=== PATIENT | male | born 1970 | race Caucasian/White ===

== ENCOUNTER 2023-07-17 09:36 | Inpatient (IN) ==
[2023-07-17 09:46] VITALS: BMI 25.0
--- NOTE | 2023-07-17 10:01 | DR.ABDMALE ---
HPI Time seen Time Seen by Provider: 07/17/23 10:00 PCP Primary Care Physician: Horace Complaint Chief Complaint Doctors Comments: 53 y/o male presents for evaluation. Having upper abdominal pain, off/on x 3-4 days. Located epigastric area, sharp, does not radiate. + worse after eating. Nothing makes it better. Had diarrhea the other day. No change in stool color. No fever, chills, URI symptoms, urinary issues. No h/o abdominal surgeries, no Etoh usage. Chief Complaint:: Pt c/o abdominal pain, indicates in epigastric region, denies n/v/d, "I feel like I'm bloated, I have a gnawing pain". Pain is worse with food and fluids, no relief from pain at present Self Treatment fo Chief Complaint: tylenol and aleve this morning; omeprazole, mylanta, tums, nothing effective to relieve sx residential COVID-19 Coronavirus risk:travel/contact w/high risk person: No Has patient experienced Coronavirus symptoms: No Reviewed Nurses Notes Review: Yes Source History provided by:: patient Mode of arrival Mode of Arrival: Ambulatory Timing Onset of Chief Complaint: 07/14/23 PMH PMH Past Medical History: Yes Past Medical History: Hypertension Past Medical History Comment: HIV Past Surgical History: No Family History History of Family Medical Conditions: Yes Family Medical History: Diabetes Mellitus and Hypertension Social History Does patient currently use any type of tobacco product: Yes Have you used tobacco products in the last 12 months: Yes Type of Tobacco Use: Cigarettes Does any household member use tobacco: No Alcohol Use: None Do you use any recreational Drugs:: No Lives With: Mom Lives Where: Home Travel Risk Coronavirus risk:travel/contact w/high risk person: No Has patient experienced Coronavirus symptoms: No Infectious screening In the last 2 months have you had wt loss of >10#?: NO Have you had fever, night sweats or hemotysis?: No Have you traveled outside the country in the last 6 months?: No Isolation: Standard ROS Review of Systems Constitutional: No Symptoms Reported Eyes: No Symptoms Reported ENTM: No Symptoms Reported Respiratoy: No Symptoms Reported Cardiovascular: No Symptoms Reported Gastrointestinal/Abdominal: Abdominal Pain Genitourinary: No Symptoms Reported Neurological: No Symptoms Reported Musculoskeletal: No Symptoms Reported Integumentary: No Symptoms Reported Hematologic/Lymphatic: No Symptoms Reported All Other Systems: Reviewed and Negative PE Vital Signs Vital Signs: Temp Pulse Resp BP Pulse Ox O2 Del Method 07/17/23 12:55 20 07/17/23 13:52 20 07/17/23 11:31 20 07/17/23 12:25 20 07/17/23 11:01 20 07/17/23 09:46 162/112 07/17/23 09:37 98.4 F 81 16 180/108 98 Room Air General General Appearance: Alert and In No Apparent Distress Eyes Eye exam: PERRL, EOMI and Scleral Icterus ENT ENT Exam: Mucous Membranes Moist Neck Neck Exam: Normal Inspection Respiratory Respiratory Exam: Normal Lung Sounds Bilat; negative Accessory Muscle Use or Respiratory Distress Cardiovascular Cardiovascular Exam: Regular Rate, Normal Rhythm and Normal Heart Sounds Abdominal Exam Abdominal Exam: Normal Inspection, Normal Bowel Sounds, Soft and Tenderness (epigastric, RUQ. Negative Huang's) Back Back Exam: Normal Inspection Extremeties Extremities Exam: Normal Inspection Neurologic Neurological Exam: Alert, Oriented X3 and CN II-XII Intact; negative Motor Sensory Deficit Skin Skin Exam: Warm and Dry COURSE Treatment Treatment: 53 y/o male with epigastric pain. W/u initiated. Pt given IV fluids, Iv protonix/po carafate. Labs show elevated TB, liver enzymes. GB US shows multiple stones, no evidence for acute cholecystitis. Consulted with Dr Christy, surgery. Recommends admission to medicine, notified Dr Vu. Dr Christy wanted an MRCP, pt was unable to tolerate it at this time. Pt was given multiple rounds of pain medicine, helps temporarily. Pt also with a UTI. Given a dose of rocephin. Admitted to the hospital, Dr Delgado wanted IV levaquinn on board . [facility]OR Labs Reviewed Laboratory Results Reviewed?: Yes 07/17/23 10:18 07/17/23 10:18 Laboratory: WBC 8.6 X10^3/uL (3.6-10.0) 07/17/23 10:18 RBC 5.43 X10^6/uL (4.7-6.0) 07/17/23 10:18 Hgb 15.2 g/dL (13.5-18.0) 07/17/23 10:18 Hct 45.7 % (42.0-54.0) 07/17/23 10:18 MCV 84.0 fL (80.0-100.0) 07/17/23 10:18 MCH 28.0 pg (27.0-34.0) 07/17/23 10:18 MCHC 33.3 g/dL (33.0-35.0) 07/17/23 10:18 RDW 14.6 % (11.6-16.5) 07/17/23 10:18 Plt Count 301 X10^3/uL (150.0-450.0) 07/17/23 10:18 MPV 8.2 fL (7.4-11.0) 07/17/23 10:18 Neut % (Auto) 74.0 % (42.0-75.0) 07/17/23 10:18 Lymph % (Auto) 16.6 % (21.0-51.0) L 07/17/23 10:18 [place] % (Auto) 7.4 % (0.0-13.0) 07/17/23 10:18 Eos % (Auto) 1.2 % (0.9-2.9) 07/17/23 10:18 Baso % (Auto) 0.8 % (0.2-1.0) 07/17/23 10:18 Neut # (Auto) 6.4 x10^3/uL (2.2-4.8) H 07/17/23 10:18 Lymph # (Auto) 1.4 X10^3/uL (1.3-2.9) 07/17/23 10:18 [place] # (Auto) 0.6 x10^3/uL (0.3-0.8) 07/17/23 10:18 Eos # (Auto) 0.1 x10^3/uL (0.0-0.2) 07/17/23 10:18 Baso # (Auto) 0.1 X10^3/uL (0.0-0.1) 07/17/23 10:18 Absolute Nucleated RBC 0.0 /100WBC 07/17/23 10:18 Sodium 132 mmol/L (136-145) L 07/17/23 10:18 Corrected Sodium 134 mmol/L (136-145) L 07/17/23 10:18 Potassium 3.4 mmol/L (3.5-5.1) L 07/17/23 10:18 Chloride 95 mmol/L (98-107) L 07/17/23 10:18 Carbon Dioxide 32.7 mmol/L (21-32) H 07/17/23 10:18 BUN 10 mg/dL (7-18) 07/17/23 10:18 Creatinine 0.90 mg/dL (0.70-1.30) 07/17/23 10:18 Est GFR (MDRD) Af Amer > 60 (>60) 07/17/23 10:18 Est GFR (MDRD) Non-Af > 60 (>60) 07/17/23 10:18 Glucose 198 mg/dL (65-99) H 07/17/23 10:18 Calcium 9.0 mg/dL (8.5-10.1) 07/17/23 10:18 Corrected Calcium TNP 07/17/23 10:18 Total Bilirubin 5.30 mg/dL (0.2-1.0) H 07/17/23 10:18 AST 289 Units/L (15-37) H 07/17/23 10:18 ALT 478 Units/L (12-78) H 07/17/23 10:18 Alkaline Phosphatase 491 Units/L (46-116) H 07/17/23 10:18 Total Protein 8.2 g/dL (6.4-8.2) 07/17/23 10:18 Albumin 3.6 g/dL (3.4-5.0) 07/17/23 10:18 Globulin 4.6 g/dL (2.5-4.5) H 07/17/23 10:18 Albumin/Globulin Ratio 0.8 Ratio (1.1-2.1) L 07/17/23 10:18 Lipase 116 Units/L (73-393) 07/17/23 10:18 Specimen Type Clean catch urine 07/17/23 10:11 Urine Color Dark yellow (YELLOW) 07/17/23 10:11 Urine Appearance Cloudy (CLEAR) 07/17/23 10:11 Urine pH 6.0 (5.0 - 8.0) 07/17/23 10:11 Ur Specific [place] 1.020 (1.000-1.030) 07/17/23 10:11 Urine Protein 3+ (NEGATIVE) 07/17/23 10:11 Urine Glucose (UA) 3+ (NEGATIVE) 07/17/23 10:11 Urine Ketones Negative (NEGATIVE) 07/17/23 10:11 Urine Blood 2+ (NEGATIVE) 07/17/23 10:11 Urine Nitrite Negative (NEGATIVE) 07/17/23 10:11 Urine Bilirubin 2+ (NEGATIVE) 07/17/23 10:11 Urine Urobilinogen 2+ (NORMAL) 07/17/23 10:11 Ur Leukocyte Esterase 3+ (NEGATIVE) 07/17/23 10:11 Urine RBC 10-20 /HPF (0-3) A 07/17/23 10:11 Urine WBC Tntc /HPF (0-5) A 07/17/23 10:11 Ur Squamous Epith Cells Few /HPF (NEGATIVE) 07/17/23 10:11 Urine Bacteria 2+ /HPF (NEGATIVE) 07/17/23 10:11 Ur Culture Indicated? Yes/culture set up 07/17/23 10:11 Ur C. trach DNA (PCR) Not detected (NOT DETECT) 07/17/23 10:11 U N.gonorrhoeae DNA PCR Not detected (NOT DETECT) 07/17/23 10:11 XRAY XRAY Interpreted by: Radiologist X-ray Results: HISTORY: Right upper quadrant abdominal pain. Study: Right upper quadrant abdominal ultrasound Comparison: None available Technique: Multiple kelley scale and color flow Doppler images of the right upper quadrant were obtained. Findings: The liver is homogeneously echogenic/fatty in appearance. No focal intraparenchymal mass or intrahepatic biliary ductal dilatation can be observed. Numerous gallstones are seen throughout the gallbladder without sonographic evidence for acute cholecystitis. The common bile duct is unremarkable measuring 2 mm. [No pericholecystic fluid or gallbladder wall thickening can be observed]. The CBD measures [within normal limits]. The right kidney appears normal in size without focal parenchymal mass or nephrolithiasis. The right kidney measurers 12 x 5 cm. No hydronephrosis or perirenal fluid can be observed. The pancreas is largely obscured by overlying bowel gas. IMPRESSION: Cholelithiasis without convincing sonographic evidence for acute cholecystitis. Nuclear medicine HIDA imaging may also be considered, as clinically necessary. The liver is diffusely echogenic/fatty appearance, suggesting hepatic steatosis. Electronically signed by: KARTHIK FELIPE III (Jul 17, 2023 12:15:05) Opioid Opioid Risk Tool Age (Dada box if 16-45): No History of Preadolescent Sexual Abuse: No Total: 0 Total Score Risk Category: Low Risk Copyright: [place] predicting aberrant behaviors Discharge Plan Diagnosis Discharge Problem: Cholelithiasis, Jaundice, Acute UTI Discharge Plan Patient Disposition: 09 ADMITTED INPATIENT Condition: Stable Orders to Discharge Patient Discharge Orders: Transfer (Routine); Ordered 07/17/23 Ordered By: Chemo Lozano
[2023-07-17] MEDS ORDERED: NS 1,000 ML IV 1,000 ML IV ONE (10:06)
[2023-07-17] MEDS ORDERED: CARAFATE PO STA (10:06)
[2023-07-17] MEDS ORDERED: PROTONIX INJ 40 MG VIAL IVP ONE ×2 (10:06→17:30)
[2023-07-17] MEDS ORDERED: NS 1,000 ML IV 1,000 ML ONE (10:10)
[2023-07-17] MEDS ORDERED: CARAFATE ONE (10:10)
[2023-07-17] MEDS ORDERED: PROTONIX INJ 40 MG VIAL ONE (10:10)
[2023-07-17 10:37] LABS: BILIRUBIN,URINE 2+ (NEGATIVE); BLOOD/HEMOGLOBIN,URINE 2+ (NEGATIVE); GLUCOSE, URINE 3+ (NEGATIVE); KETONES,URINE NEGATIVE (NEGATIVE); LEUKOCYTE ESTERASE ,URINE 3+ (NEGATIVE); NITRITES,URINE NEGATIVE (NEGATIVE); PROTEIN,URINE 3+ (NEGATIVE); UROBILINOGEN,URINE 2+ (NORMAL)
[2023-07-17 10:42] LABS: BASOPHILS # (AUTO) 0.1 X10^3/uL (0.0-0.1); BASOPHILS % (AUTO) 0.8 % (0.2-1.0); EOSINOPHILS # (AUTO) 0.1 x10^3/uL (0.0-0.2); EOSINOPHILS % (AUTO) 1.2 % (0.9-2.9); HEMATOCRIT 45.7 % (42.0-54.0); HEMOGLOBIN 15.2 g/dL (13.5-18.0); LYMPHOCYTES # (AUTO) 1.4 X10^3/uL (1.3-2.9); LYMPHOCYTES % (AUTO) 16.6 % (21.0-51.0); MEAN CORPUSCULAR HGB CONC 33.3 g/dL (33.0-35.0); MEAN PLATELET VOLUME 8.2 fL (7.4-11.0); MONOCYTES # (AUTO) 0.6 x10^3/uL (0.3-0.8); MONOCYTES % (AUTO) 7.4 % (0.0-13.0); NEUTROPHILS # (AUTO) 6.4 x10^3/uL (2.2-4.8); PLATELET COUNT 301 X10^3/uL (150.0-450.0); RED BLOOD COUNT 5.43 X10^6/uL (4.7-6.0); RED CELL DISTRIBUTION WIDTH 14.6 % (11.6-16.5); WHITE BLOOD COUNT 8.6 X10^3/uL (3.6-10.0)
[2023-07-17] MEDS ORDERED: MORPHINE SULFATE INJ 4 MG IVP ONE ×2 (10:51→12:22)
[2023-07-17] MEDS ORDERED: ZOFRAN INJ 4 MG VIAL IVP ONE ×3 (10:51→17:30)
[2023-07-17 10:53] LABS: ALANINE AMINOTRANSFERASE 478 Units/L (12-78); ALBUMIN 3.6 g/dL (3.4-5.0); ALKALINE PHOSPHATASE 491 Units/L (46-116); ASPARTATE AMINO TRANSFERASE 289 Units/L (15-37); BLOOD UREA NITROGEN 10 mg/dL (7-18); CARBON DIOXIDE 32.7 mmol/L (21-32); CHLORIDE 95 mmol/L (98-107); COR NA(FOR HYPERGLY) 134 mmol/L (136-145); GLUCOSE 198 mg/dL (65-99); LIPASE 116 Units/L (73-393); POTASSIUM 3.4 mmol/L (3.5-5.1); SODIUM 132 mmol/L (136-145); TOTAL PROTEIN 8.2 g/dL (6.4-8.2); eGFR NON BLACK RACES > 60 (>60)
[2023-07-17] MEDS ORDERED: MORPHINE SULFATE INJ 4 MG ONE ×2 (10:56→12:16)
[2023-07-17] MEDS ORDERED: ZOFRAN INJ 4 MG VIAL ONE ×2 (10:56→12:17)
[2023-07-17 11:01] LABS: APPEARANCE,URINE CLOUDY (CLEAR); COLOR,URINE DARK YELLOW (YELLOW)
[2023-07-17 11:02] LABS: BACTERIA,URINE 2+ /HPF (NEGATIVE); SQUAMOUS EPITHELIAL CELL,UR FEW /HPF (NEGATIVE)
--- NOTE | 2023-07-17 12:16 | US ---
HISTORY: Right upper quadrant abdominal pain.Study: Right upper quadrant abdominal ultrasoundComparison: None availableTechnique: Multiple kelley scale and color flow Doppler images of the right upper quadrant were obtained.Findings:The liver is homogeneously echogenic/fatty in appearance. No focal intraparenchymal mass or intrahepatic biliary ductal dilatation can be observed. Numerous gallstones are seen throughout the gallbladder without sonographic evidence for acute cholecystitis. The common bile duct is unremarkable measuring 2 mm. [No pericholecystic fluid or gallbladder wall thickening can be observed]. The CBD measures [within normal limits]. The right kidney appears normal in size without focal parenchymal mass or nephrolithiasis. The right kidney measurers 12 x 5 cm. No hydronephrosis or perirenal fluid can be observed. The pancreas is largely obscured by overlying bowel gas.IMPRESSION:Cholelithiasis without convincing sonographic evidence for acute cholecystitis.Nuclear medicine HIDA imaging may also be considered, as clinically necessary.The liver is diffusely echogenic/fatty appearance, suggesting hepatic steatosis.Electronically signed by: KARTHIK FELIPE III (Jul 17, 2023 12:15:05)
[2023-07-17] MEDS ORDERED: DILAUDID INJ IVP ONE (13:39)
[2023-07-17] MEDS ORDERED: ROCEPHIN VIAL 1 GRAM IVP STA (13:47)
[2023-07-17] MEDS ORDERED: DILAUDID INJ ONE (13:47)
[2023-07-17] MEDS ORDERED: D5 1/2 NS 1,000 ML 1,000 ML IV ONE (14:09)
[2023-07-17] MEDS ORDERED: LEVAQUIN PREMIX IV 500 MG 500 MG/100 ML BAG IV ONE (14:09)
[2023-07-17] MEDS ORDERED: ROCEPHIN VIAL 1 GRAM ONE (14:09)
[2023-07-17] MEDS ORDERED: COMPAZINE INJ ONE (14:22)
[2023-07-17] MEDS ORDERED: BENADRYL INJ 50 MG VIAL ONE (14:22)
[2023-07-17] MEDS ORDERED: COMPAZINE INJ IM ONE (14:29)
[2023-07-17] MEDS ORDERED: BENADRYL INJ 50 MG VIAL IVP ONE (14:30)
[2023-07-17] MEDS ORDERED: COMPAZINE INJ IVP ONE (14:32)
[2023-07-17] MEDS: LEVAQUIN PREMIX IV 500 MG 500 MG/100 ML BAG IV SCH (14:50)
[2023-07-17] MEDS ORDERED: CONSULT PHARMACY - POTASSIUM & MAGNESIUM XX SCH ×3 (15:00→19:00)
[2023-07-17] MEDS ORDERED: D5 1/2 NS 1,000 ML 1,000 ML IV SCH ×2 (15:00)
[2023-07-17] MEDS ORDERED: D5 1/2 NS + KCL 20 MEQ/L 1,000 ML IV SCH (16:00)
[2023-07-17] MEDS: DILAUDID INJ IVP PRN ×2 (17:41→21:47)
[2023-07-17] MEDS ORDERED: K-DUR TAB 20 MEQ PO SCH (19:00)
[2023-07-17] MEDS ORDERED: NORCO 5/325 MG TAB PO PRN (20:18)
[2023-07-18] MEDS: DILAUDID INJ IVP PRN ×3 (03:57→18:56)
[2023-07-18 06:36] LABS: BASOPHILS # (AUTO) 0.1 X10^3/uL (0.0-0.1); BASOPHILS % (AUTO) 0.5 % (0.2-1.0); EOSINOPHILS % (AUTO) 0.1 % (0.9-2.9); HEMATOCRIT 45.8 % (42.0-54.0); HEMOGLOBIN 15.2 g/dL (13.5-18.0); LYMPHOCYTES # (AUTO) 1.1 X10^3/uL (1.3-2.9); LYMPHOCYTES % (AUTO) 9.9 % (21.0-51.0); MEAN CORPUSCULAR HEMOGLOBIN 27.7 pg (27.0-34.0); MEAN CORPUSCULAR HGB CONC 33.2 g/dL (33.0-35.0); MEAN CORPUSCULAR VOLUME 83.5 fL (80.0-100.0); MEAN PLATELET VOLUME 8.4 fL (7.4-11.0); MONOCYTES # (AUTO) 1.1 x10^3/uL (0.3-0.8); MONOCYTES % (AUTO) 9.5 % (0.0-13.0); NEUTROPHILS # (AUTO) 9.1 x10^3/uL (2.2-4.8); PLATELET COUNT 294 X10^3/uL (150.0-450.0); RED BLOOD COUNT 5.48 X10^6/uL (4.7-6.0); RED CELL DISTRIBUTION WIDTH 15.3 % (11.6-16.5); WHITE BLOOD COUNT 11.4 X10^3/uL (3.6-10.0)
[2023-07-18 06:46] LABS: ALANINE AMINOTRANSFERASE 481 Units/L (12-78); ALBUMIN 3.2 g/dL (3.4-5.0); ALKALINE PHOSPHATASE 580 Units/L (46-116); ASPARTATE AMINO TRANSFERASE 275 Units/L (15-37); BLOOD UREA NITROGEN 9 mg/dL (7-18); CARBON DIOXIDE 27.4 mmol/L (21-32); CHLORIDE 94 mmol/L (98-107); COR CA(FOR HYPOALB) 9.6 mg/dL (8.5-10.1); COR NA(FOR HYPERGLY) 132 mmol/L (136-145); CREATININE 0.73 mg/dL (0.70-1.30); GLUCOSE 168 mg/dL (65-99); POTASSIUM 3.7 mmol/L (3.5-5.1); SODIUM 130 mmol/L (136-145); TOTAL PROTEIN 7.9 g/dL (6.4-8.2); eGFR NON BLACK RACES > 60 (>60)
[2023-07-18] MEDS ORDERED: CONSULT PHARMACY - POTASSIUM & MAGNESIUM XX SCH (08:00)
[2023-07-18] MEDS: LEVAQUIN PREMIX IV 500 MG 500 MG/100 ML BAG IV SCH (08:48)
[2023-07-18] MEDS: ZOFRAN INJ 4 MG VIAL IVP PRN ×2 (08:48→18:56)
[2023-07-18] MEDS ORDERED: LEVAQUIN PREMIX IV 500 MG 500 MG/100 ML BAG IV SCH (09:00)
[2023-07-18] MEDS ORDERED: PROTONIX INJ 40 MG VIAL IVP SCH (09:00)
[2023-07-18] MEDS ORDERED: ATIVAN INJ 2 MG VIAL IVP ONE (10:30)
[2023-07-18] MEDS ORDERED: DILAUDID INJ IVP ONE ×2 (10:30→22:14)
--- NOTE | 2023-07-18 10:35 | DR.H&P ---
H&P - History & Physical for Day of: H&P Date: 07/17/23 - Chief Complaint Chief Complaint: ABDOMINAL PAIN, NAUSEA AND VOMITING - History of Present Illness History of Present Illness: IS A 53 YEAR OLD PATIENT OF OURS. HE PRESENTED TO THE ER WITH COMPLAINTS OF ABDOMINAL PAIN AND NAUSEA/VOMITING FOR THE PAST 3-4 DAYS. PAIN IS LOCATED IN THE EPIGASTRIC AREA. HE DESCRIBES PAIN INTERMITTENT, SHARP, DOES NOT RADIATE, AND IS WORSE AFTER EATING. NOTH MAKES PAIN BETTER. HE HAS HAD A FEW EPISODES OF DIARRHEA. HE DENIES FEVER, CHILLS, URI SX, OR URINARY ISSUES. HE DENIES AND HISTORY OF ABDOMINAL SURGERIES. HE HAS TAKEN TYLENOL, ALEVE, OMEPRAZOLE, MYLANTA, AND TUMS WITH NO RELIEF. PATIENT IS NOTED TO BE MILDLY JAUNDICED. HE HAS A PMH OF HTN AND HIV. ON ARRIVAL TO THE HOSPITAL, HIS VITALS WERE: 98.4-81-16-98%-180/108. LABS WERE OBTAINED. WBC 8.6, RBC 5.43, HGB 15.2, HCT 45.7, PLT COUNT 301, SODIUM 132, POTASSIUM 3.4, CHLORIDE 95, CARBON DIOXIDE 32.7, BUN 10, CREATININE 0.90, GLUCOSE 198, CALCIUM 9.0, TOTAL BILI 5.30, AST 289, ALT 478, ALK PHOS 491, TOTAL PROTEIN 8.2, ALBUMIN 3.6, LIPASE 116. URINALYSIS WAS OBTAINED AND REVEALED: WBC TNTC, RBC 10-20, LEUKOCYTES 3+, BACTERIA 2+, PROTEIN 3+. A URINE CULTURE WAS SET UP. A GALLBL ADDER ULTRASOUND WAS OBTAINED AND REVEALED: The liver is homogeneously echogenic/fatty in appearance. No focal intraparenchymal mass or intrahepatic biliary ductal dilatation can be observed. Numerous gallstones are seen throughout the gallbladder without sonographic evidence for acute cholecystitis. The common bile duct is unremarkable measuring 2 mm. No pericholecystic fluid or gallbladder wall thickening can be observed]. The CBD measures within normal limits. The right kidney appears normal in size without focal parenchymal mass or nephrolithiasis. The right kidney measurers 12 x 5 cm. No hydronephrosis or perirenal fluid can be observed. The pancreas is largely obscured by overlying bowel gas. A MRCP WAS ORDERED, BUT PATIENT WAS UNABLE TO TOLERATE DUE TO ANXIETY. WAS CONSULTED. HE PLANS TO TRY AGAIN FOR MRCP TOMORROW WITH PREMEDICATION FOR ANXIETY. IF HE IS UNABLE TO OBTAIN MRCP, HE WILL PROCEED WITH DIAGNOSTIC LAPROSCOPY AND LAPROSCOPIC CHOLECYSTECTOMY. IN THE ER, HE WAS GIVEN CARAFATE 1G PO X 1, A NORMAL SALINE BOLUS, PROTONIX 40MG IV X 1, MORPHINE SULFATE 4MG IV X 2 DOSES, ZOFRAN 4MG IV X 2 DOSES, DILAUDID 1MG IV X 1, ROCEPHIN 1G IV X1. HE WAS ADMITTED TO THE HOSPITAL FOR FURTHER EVALUATION AND TREATMENT OF CHOLELITHIASIS, JAUNDICE, UTI, ABDOMINAL PAIN, HYPONATREMIA, HYPERBILIRUBINEMIA. HE WAS STARTED ON NORMAL SALINE AT 150 ML/HR, LEVAQUIN 500MG IV DAILY, ZOFRAN 4MG IV Q6H PRN, PROTONIX 40MG IV DAILY, DILAUDID 1MG IV Q4H PRN PAIN, NORCO 5/325MG PO Q6H PRN PAIN. WE WILL RESUME HIS HOME MEDICATIONS OF AMLODIPINE AND GENVOYA. WE WILL ATTEMPT TO REPEAT AN MRCP. OTHERWISE, WE WILL FOLLOW UP WITH AM LABS AND CONTINUE TO MONITOR. TIME SPENT ON CLINICAL ASSESSMENT, REVIEWING LABS AND IMAGING, DECISION MAKING, AND DOCUMENTATION GREATER THAN 75 MINUTES. - Past Medical History Past Medical History: Hypertension Additional Medical History: HIV - Past Surgical History Surgical History: No History - Family History Family Medical History: Diabetes Mellitus, [place], Hypertension - Social History Does patient currently use any type of tobacco product: Yes Have you used tobacco products in the last 12 months: Yes Type of Tobacco Use: Cigarettes Does any household member use tobacco: No Alcohol Use: None Drug Use: None - Review of Systems Constitutional: Weakness. denies: Fever, Chills Eyes: No Symptoms Reported ENT: No Symptoms Reported Respiratory: No Symptoms Reported Cardiovascular: No Symptoms Reported Gastrointestinal: Nausea, Vomiting, Abdominal Pain, Diarrhea. denies: Melena, Hematochezia Genitourinary: No Symptoms Reported Musculoskeletal: No Symptoms Reported Skin: No Symptoms Reported Neurological: Weakness - Physical Exam Vital Signs: Vital Signs Temperature 98.3 F Temperature 97.8 F Pulse Rate [Right Radial] 88 Pulse Rate [Right Radial] 98 Respiratory Rate 16 Respiratory Rate 16 Respiratory Rate 18 Respiratory Rate 16 Respiratory Rate 16 Respiratory Rate 20 Respiratory Rate 20 Blood Pressure [Right Arm] 170/90 Blood Pressure [Right Arm] 180/100 O2 Sat by Pulse Oximetry 96 O2 Sat by Pulse Oximetry 96 Oriented: Normal Eyes: Normal Ear: Normal Nose: Normal Throat: Normal Respiratory: Clear Throughout Cardiovascular: Normal : Normal Auscultation: Bowel Sounds: Normal Palpation: Normal Tenderness: Epigastric, Moderate Skin: Other (JAUNDICED ) Musculoskeletal: Normal Psychiatric: Normal Mood Description: Calm Affect: Normal Speech Pattern: Clear - Assessment/Plan (1) Cholelithiasis Qualifiers: Cholelithiasis location: gallbladder Cholecystitis presence: without cholecystitis Biliary obstruction: without biliary obstruction Qualified Code(s): K80.20 - Calculus of gallbladder without cholecystitis without obstruction Status: Acute Plan: ADMIT, OBTAIN MRCP, SURGICAL CONSULT, NORMAL SALINE AT 150 ML/HR, LEVAQUIN 500MG IV DAILY, ZOFRAN 4MG IV Q6H PRN, PROTONIX 40MG IV DAILY, DILAUDID 1MG IV Q4H PRN PAIN, NORCO 5/325MG PO Q6H PRN PAIN. RESUME HOME MEDS (2) Acute UTI Status: Acute (3) Jaundice Status: Acute (4) Abdominal pain Qualifiers: Abdominal location: epigastric Qualified Code(s): R10.13 - Epigastric pain Status: Acute (5) Hyponatremia Status: Acute (6) Hyperbilirubinemia Status: Acute (7) HIV (human immunodeficiency virus infection) Qualifiers: HIV symptom status: unspecified Qualified Code(s): B20 - Human immunodeficiency virus [HIV] disease Status: Chronic Plan: CONTINUE GENVOYA (8) HTN (hypertension) Qualifiers: Hypertension type: primary hypertension Qualified Code(s): I10 - Essential (primary) hypertension Status: Chronic Plan: CONTINUE AMLODIPINE - Allergies Allergies/Adverse Reactions: Allergies Allergy/AdvReac Type Severity Reaction Status Date / Time Sulfa (Sulfonamide Allergy Verified 07/17/23 09:49 Antibiotics) [SULFA] - Medications Home Medications: Home Medications Medication Instructions Recorded Confirmed amlodipine 5 mg tablet 5 mg PO DAILY 07/17/23 07/17/23 elviteg 150 mg-cob 150 mg-emtricit 150 tab PO DAILY 07/17/23 07/17/23 200 mg-tenofo alafenam 10 mg tablet (Genvoya)
[2023-07-18] MEDS ORDERED: EMTRICITABINE PO SCH (10:45)
[2023-07-18] MEDS ORDERED: TENOFOVIR ALAFENAMIDE PO SCH (10:45)
[2023-07-18] MEDS ORDERED: [UNRECOGNIZED DRUG - OTHER] PO SCH (10:45)
[2023-07-18] MEDS ORDERED: ELVITEGRAVIR PO SCH (10:45)
[2023-07-18] MEDS ORDERED: COBICISTAT PO SCH (10:45)
[2023-07-18] MEDS ORDERED: NS 1,000 ML IV 1,000 ML IV SCH (11:00)
[2023-07-18] MEDS ORDERED: NORVASC TAB 5 MG PO SCH (11:00)
[2023-07-18] MEDS: NS + KCL 20 MEQ/L 1,000 ML IV SCH ×2 (13:12→20:14)
--- NOTE | 2023-07-18 14:34 | MRI ---
HISTORYnausea, vomiting, hx of gallstonesSTUDYMRCPCOMPARISONSame day gallbladder ultrasound.TECHNIQUEMultiplanar multisequence MRI of the abdomen with MRCP without contrast were obtained per protocol.FINDINGSThere is choledocholithiasis measuring approximately 9 mm at proximal common duct. There is moderate intrahepatic ductal dilatation. There are calculi in the cystic duct image 58 series 1001. The common duct measures up to 12 mm proximally. There are several cholelithiasis seen on image 12-15 of series 501. The distal common duct appears normal in size.The liver appears intrinsically normal in signal and morphology. No signal loss on the opposed phase to suggest hepatic steatosis. The adrenal glands appear benign. There is a small left lower pole renal cyst measuring 9 mm image 26 series 601. The spleen appears normal in signal and morphology and measures up to 8.2 cm. No hydronephrosis. Mild perinephric T2 bright fat stranding. The pancreatic duct appears normal in size. No pancreatic divisum. Pancreas appears intrinsically benign. Mild right right lower lobe of lung subsegmental atelectasis. Normal caliber abdominal aorta.IMPRESSIONCholedocholithiasis in the proximal common duct measuring 9 mm with moderate upstream common duct and intrahepatic ductal dilatation. Consider ERCP. There are multiple cholelithiasis including calculi in the cystic duct but no pericholecystic edema or gallbladder wall thickening to suggest cholecystitis.Electronically signed by: Adalberto Sigala (Jul 18, 2023 14:32:51)
--- NOTE | 2023-07-18 15:36 | DR.PROGNOT ---
HOSPITAL PROGRESS NOTE Progress Note for Day of: Progress Note Date: 07/18/23 Chief Complaint Chief Complaint: still c/o epigastric and RUQ pain . no vomiting .. MRCP showed CBD stone with dilated CBD WBC 11.4. Bilrubin 8 . moderate elevated LFT . Temp 97.4 Past Medical Family Social History Allergies: Allergies Sulfa (Sulfonamide Antibiotics) [SULFA] Allergy (Verified 07/17/23 09:49) Vital Signs Vital Signs: Vital Signs Temperature 97.4 F Temperature 98.3 F Pulse Rate [Right Radial] 98 Pulse Rate [Right Radial] 88 Respiratory Rate 20 Respiratory Rate 16 Respiratory Rate 16 Respiratory Rate 16 Respiratory Rate 18 Blood Pressure [Right Arm] 120/89 Blood Pressure [Right Arm] 170/90 O2 Sat by Pulse Oximetry 92 O2 Sat by Pulse Oximetry 96 Physical Exam Oriented: Normal Eyes: Normal Ear: Normal Nose: Normal Throat: Normal Cardiovascular: Normal : Normal GI:Auscultation: Normal GI:Palpation: Normal GI: Tenderness: Other (soft abdomen with RUQ and epigastric tenderness .. BS+) Skin: Other (JAUNDICED ) Musculoskeletal: Normal Psychiatric: Normal Mood Description: Calm Affect: Normal Speech Pattern: Clear Laboratory and Diagnostics 07/18/23 05:40 07/18/23 05:40 Labs: 07/17/23 10:11 Urine,Clean Catch Urine Culture - Preliminary Laboratory WBC 11.4 X10^3/uL (3.6-10.0) H 07/18/23 05:40 RBC 5.48 X10^6/uL (4.7-6.0) 07/18/23 05:40 Hgb 15.2 g/dL (13.5-18.0) 07/18/23 05:40 Hct 45.8 % (42.0-54.0) 07/18/23 05:40 MCV 83.5 fL (80.0-100.0) 07/18/23 05:40 MCH 27.7 pg (27.0-34.0) 07/18/23 05:40 MCHC 33.2 g/dL (33.0-35.0) 07/18/23 05:40 RDW 15.3 % (11.6-16.5) 07/18/23 05:40 Plt Count 294 X10^3/uL (150.0-450.0) 07/18/23 05:40 MPV 8.4 fL (7.4-11.0) 07/18/23 05:40 Neut % (Auto) 80.0 % (42.0-75.0) H 07/18/23 05:40 Lymph % (Auto) 9.9 % (21.0-51.0) L 07/18/23 05:40 [place] % (Auto) 9.5 % (0.0-13.0) 07/18/23 05:40 Eos % (Auto) 0.1 % (0.9-2.9) L 07/18/23 05:40 Baso % (Auto) 0.5 % (0.2-1.0) 07/18/23 05:40 Neut # (Auto) 9.1 x10^3/uL (2.2-4.8) H 07/18/23 05:40 Lymph # (Auto) 1.1 X10^3/uL (1.3-2.9) L 07/18/23 05:40 [place] # (Auto) 1.1 x10^3/uL (0.3-0.8) H 07/18/23 05:40 Eos # (Auto) 0.0 x10^3/uL (0.0-0.2) 07/18/23 05:40 Baso # (Auto) 0.1 X10^3/uL (0.0-0.1) 07/18/23 05:40 Absolute Nucleated RBC 0.0 /100WBC 07/18/23 05:40 Sodium 130 mmol/L (136-145) L 07/18/23 05:40 Corrected Sodium 132 mmol/L (136-145) L 07/18/23 05:40 Potassium 3.7 mmol/L (3.5-5.1) 07/18/23 05:40 Chloride 94 mmol/L (98-107) L 07/18/23 05:40 Carbon Dioxide 27.4 mmol/L (21-32) 07/18/23 05:40 BUN 9 mg/dL (7-18) 07/18/23 05:40 Creatinine 0.73 mg/dL (0.70-1.30) 07/18/23 05:40 Est GFR (MDRD) Af Amer > 60 (>60) 07/18/23 05:40 Est GFR (MDRD) Non-Af > 60 (>60) 07/18/23 05:40 Glucose 168 mg/dL (65-99) H 07/18/23 05:40 Calcium 9.0 mg/dL (8.5-10.1) 07/18/23 05:40 Corrected Calcium 9.6 mg/dL (8.5-10.1) 07/18/23 05:40 Magnesium 2.1 mg/dL (2.0-2.9) 07/17/23 10:18 Total Bilirubin 8.20 mg/dL (0.2-1.0) H 07/18/23 05:40 AST 275 Units/L (15-37) H 07/18/23 05:40 ALT 481 Units/L (12-78) H 07/18/23 05:40 Alkaline Phosphatase 580 Units/L (46-116) H 07/18/23 05:40 Total Protein 7.9 g/dL (6.4-8.2) 07/18/23 05:40 Albumin 3.2 g/dL (3.4-5.0) L 07/18/23 05:40 Globulin 4.7 g/dL (2.5-4.5) H 07/18/23 05:40 Albumin/Globulin Ratio 0.7 Ratio (1.1-2.1) L 07/18/23 05:40 Lipase 116 Units/L (73-393) 07/17/23 10:18 Specimen Type Clean catch urine 07/17/23 10:11 Urine Color Dark yellow (YELLOW) 07/17/23 10:11 Urine Appearance Cloudy (CLEAR) 07/17/23 10:11 Urine pH 6.0 (5.0 - 8.0) 07/17/23 10:11 Ur Specific [place] 1.020 (1.000-1.030) 07/17/23 10:11 Urine Protein 3+ (NEGATIVE) 07/17/23 10:11 Urine Glucose (UA) 3+ (NEGATIVE) 07/17/23 10:11 Urine Ketones Negative (NEGATIVE) 07/17/23 10:11 Urine Blood 2+ (NEGATIVE) 07/17/23 10:11 Urine Nitrite Negative (NEGATIVE) 07/17/23 10:11 Urine Bilirubin 2+ (NEGATIVE) 07/17/23 10:11 Urine Urobilinogen 2+ (NORMAL) 07/17/23 10:11 Ur Leukocyte Esterase 3+ (NEGATIVE) 07/17/23 10:11 Urine RBC 10-20 /HPF (0-3) A 07/17/23 10:11 Urine WBC Tntc /HPF (0-5) A 07/17/23 10:11 Ur Squamous Epith Cells Few /HPF (NEGATIVE) 07/17/23 10:11 Urine Bacteria 2+ /HPF (NEGATIVE) 07/17/23 10:11 Ur Culture Indicated? Yes/culture set up 07/17/23 10:11 Ur C. trach DNA (PCR) Not detected (NOT DETECT) 07/17/23 10:11 U N.gonorrhoeae DNA PCR Not detected (NOT DETECT) 07/17/23 10:11 Assessment and Plan 1: CBD stones , cholecystitis . needs ERCP then lap stephanie .. on IVF and antibiotics .. Problem Patient Problems: Patient Problems Cholelithiasis (Acute) K80.20 Jaundice (Acute) R17 Acute UTI (Acute) N39.0 Abdominal pain (Acute) R10.9 Hyponatremia (Acute) E87.1 Hyperbilirubinemia (Acute) E80.6 HIV (human immunodeficiency virus infection) (Chronic) B20 HTN (hypertension) (Chronic) I10
[2023-07-18 20:44] VITALS: BP 143/88; PULSE 93; RESP 18; TEMP 97.7; O2SAT 97
[2023-07-21 06:21] LABS: HEPATITIS B SURFACE ANTIGEN Negative (Negative)
== END 2023-07-18 22:30 | disposition short-term general hospital (02) | DRG 445 ==
LOC: ER 09:36 → MED/SURG 15:09
PROVIDERS: ADMIT Internal Medicine; ATTEND Internal Medicine
DX: E87.1 Hypo-osmolality and hyponatremia; R10.11 Right upper quadrant pain; Z21 Asymptomatic human immunodeficiency virus [HIV] infection status; B96.5 Pseudomonas (aeruginosa) (mallei) (pseudomallei) as the cause of diseases classified elsewhere; Z72.0 Tobacco use; I10 Essential (primary) hypertension; R11.2 Nausea with vomiting, unspecified; R10.13 Epigastric pain; N39.0 Urinary tract infection, site not specified; K80.20 Calculus of gallbladder without cholecystitis without obstruction; R17 Unspecified jaundice

== ENCOUNTER 2024-07-01 13:43 | Observation (INO) ==
--- NOTE | 2024-07-01 14:39 | DR.ABDMALE ---
HPI Time seen Time Seen by Provider: 07/01/24 14:38 PCP Primary Care Physician: Aubrie Lizama Chief Complaint Doctors Comments: 54-year-old male presents for evaluation. Started feeling poorly last p.m. Having pain discomfort of his epigastric re gion. Dull sensation, feels bloated. Does not radiate. Has slight nausea associated with it, no vomiting. No diarrhea or constipation, no change in the color of the stools. No urinary issues. Denies fevers or chills. He is hot, diaphoretic with it. Denies chest pain, shortness of breath. Epigastric pain worse with movement. Nothing makes it better.. History of biliary stent last year, symptoms were somewhat similar. Chief Complaint:: Pt states over night he started having pain in epigastric region that is localized, doesn't radiate, he is having belching, denies n/v/d, pain is 7/10, describes as "gnawing" pain that is constant and c/o abdomen feeling bloated. Pt denies urinary isses, LBM yesterday. Pt had ERCP at [facility] last year, still has stent in place from blocked bile duct (2022), has not f/u with GI MD. Pt is HIV+. Pt still has GB COVID-19 Coronavirus risk:travel/contact w/high risk person: No Has patient experienced Coronavirus symptoms: No Reviewed Nurses Notes Review: Yes Source History provided by:: patient Mode of arrival Mode of Arrival: Ambulatory Timing Onset of Chief Complaint: 07/01/24 PMH PMH Past Medical History: Yes Past Medical History: GERD and Hypertension Past Medical History Comment: HIV+ Past Surgical History: No Surgical History: No History Family History History of Family Medical Conditions: Yes Family Medical History: Diabetes Mellitus, MA and Hypertension Social History Does patient currently use any type of tobacco product: Yes Have you used tobacco products in the last 12 months: Yes Type of Tobacco Use: Cigarettes Alcohol Use: None Do you use any recreational Drugs:: No Lives Where: Home Travel Risk Coronavirus risk:travel/contact w/high risk person: No Has patient experienced Coronavirus symptoms: No Infectious screening In the last 2 months have you had wt loss of >10#?: NO Have you had fever, night sweats or hemotysis?: No Have you traveled outside the country in the last 6 months?: No Isolation: Standard ROS Review of Systems Constitutional: Diaphoresis Eyes: No Symptoms Reported ENTM: No Symptoms Reported Respiratoy: No Symptoms Reported Cardiovascular: No Symptoms Reported Gastrointestinal/Abdominal: See HPI Genitourinary: No Symptoms Reported Neurological: No Symptoms Reported Musculoskeletal: No Symptoms Reported Integumentary: No Symptoms Reported Hematologic/Lymphatic: No Symptoms Reported All Other Systems: Reviewed and Negative PE Vital Signs Vital Signs: Temp Pulse Resp BP Pulse Ox O2 Del Method 07/01/24 17:16 107 H 93 L 07/01/24 17:00 101 H 21 97 07/01/24 17:00 116/55 07/01/24 16:45 130/81 07/01/24 16:45 130/81 07/01/24 16:45 96 H 13 93 L 07/01/24 16:38 129/81 07/01/24 16:38 101 H 13 95 07/01/24 16:30 125/73 07/01/24 16:30 99 H 18 94 L 07/01/24 16:15 119/69 07/01/24 16:15 99 H 18 93 L 07/01/24 16:00 122/66 07/01/24 16:00 100 H 18 93 L 07/01/24 15:45 103 H 14 93 L 07/01/24 15:45 117/65 07/01/24 15:30 136/81 07/01/24 15:30 105 H 14 94 L 07/01/24 15:15 128/66 07/01/24 15:15 107 H 18 94 L 07/01/24 15:00 143/71 07/01/24 15:00 111 H 19 95 07/01/24 14:45 140/85 07/01/24 14:45 114 H 11 L 94 L 07/01/24 14:30 151/85 07/01/24 14:30 118 H 22 93 L 07/01/24 14:22 116 H 21 93 L 07/01/24 15:03 23 07/01/24 15:01 23 07/01/24 13:44 98.9 F 125 H 16 130/80 91 L Room Air General General Appearance: Alert and In No Apparent Distress Eyes Eye exam: PERRL and EOMI ENT ENT Exam: Mucous Membranes Moist Neck Neck Exam: Normal Inspection and Full ROM; negative Tenderness Respiratory Respiratory Exam: Normal Lung Sounds Bilat; negative Accessory Muscle Use or Respiratory Distress Cardiovascular Cardiovascular Exam: Regular Rate, Normal Rhythm and Normal Heart Sounds Abdominal Exam Abdominal Exam: Normal Bowel Sounds, Soft and Tenderness (Epigastric region); negative Organomegaly Back Back Exam: Normal Inspection Extremeties Extremities Exam: Normal Inspection and Full ROM; negative Edema Neurologic Neurological Exam: Alert, Oriented X3 and CN II-XII Intact; negative Motor Sensory Deficit Skin Skin Exam: Warm and Dry COURSE Treatment Treatment: 54-year-old male with persistent epigastric discomfort since last p.m.. Work-up initiated.. EKG acceptable. Patient given GI cocktail, IV Zofran, IV Protonix and morphine. 1724 -white count markedly elevated 19,700. Total bili elevated at 7.1, AST 194, ALT 179, alk phos 229. Lipase however is normal. Glucose elevated 316, does not have a history of diabetes, her glucose here last year was 215. Saw his PCP last month, had a glycosylated hemoglobin of 12.9. Has not been treated yet. Ultrasound not available at this time the evening. Will pursue CT of the abdomen pelvis with IV contrast for further evaluation. Consult with general surgery, Dr. Christy, will plan admitting the patient to medicine, and he will consult. Presentation highly concerning for acute cholecystitis.. Given additional IV fluids, IV analgesia, and will start IV antibiotics. ROR Labs Reviewed Laboratory Results Reviewed?: Yes 07/01/24 14:04 07/01/24 14:04 Laboratory: WBC 19.7 X10^3/uL (3.6-10.0) H 07/01/24 14:04 RBC 4.80 X10^6/uL (4.7-6.0) 07/01/24 14:04 Hgb 13.5 g/dL (13.5-18.0) 07/01/24 14:04 Hct 40.4 % (42.0-54.0) L 07/01/24 14:04 MCV 84.3 fL (80.0-100.0) 07/01/24 14:04 MCH 28.1 pg (27.0-34.0) 07/01/24 14:04 MCHC 33.3 g/dL (33.0-35.0) 07/01/24 14:04 RDW 15.8 % (11.6-16.5) 07/01/24 14:04 Plt Count 268 X10^3/uL (150.0-450.0) 07/01/24 14:04 Plt Count Comment Adequate (ADEQUATE) 07/01/24 14:04 MPV 8.9 fL (7.4-11.0) 07/01/24 14:04 Neut % (Auto) 92.7 % (42.0-75.0) H 07/01/24 14:04 Lymph % (Auto) 2.7 % (21.0-51.0) L 07/01/24 14:04 [place] % (Auto) 4.2 % (0.0-13.0) 07/01/24 14:04 Eos % (Auto) 0.1 % (0.9-2.9) L 07/01/24 14:04 Baso % (Auto) 0.3 % (0.2-1.0) 07/01/24 14:04 Neut # (Auto) 18.2 x10^3/uL (2.2-4.8) H 07/01/24 14:04 Lymph # (Auto) 0.5 X10^3/uL (1.3-2.9) L 07/01/24 14:04 [place] # (Auto) 0.8 x10^3/uL (0.3-0.8) 07/01/24 14:04 Eos # (Auto) 0.0 x10^3/uL (0.0-0.2) 07/01/24 14:04 Baso # (Auto) 0.0 X10^3/uL (0.0-0.1) 07/01/24 14:04 Absolute Nucleated RBC 0.0 /100WBC 07/01/24 14:04 Total Counted 100 07/01/24 14:04 Neutrophils % (Manual) 92 % (39-76) H 07/01/24 14:04 Lymphocytes % (Manual) 4 % (13-43) L 07/01/24 14:04 Monocytes % (Manual) 4 % (4-9) 07/01/24 14:04 Plt Morphology Comment Normal (NORMAL) 07/01/24 14:04 RBC Morphology Normal (NORMAL) 07/01/24 14:04 Sodium 130 mmol/L (136-145) L 07/01/24 14:04 Corrected Sodium 135 mmol/L (136-145) L 07/01/24 14:04 Potassium 3.9 mmol/L (3.5-5.1) 07/01/24 14:04 Chloride 92 mmol/L (98-107) L 07/01/24 14:04 Carbon Dioxide 27.1 mmol/L (21-32) 07/01/24 14:04 BUN 9 mg/dL (7-18) 07/01/24 14:04 Creatinine 1.10 mg/dL (0.70-1.30) 07/01/24 14:04 Est GFR (MDRD) Af Amer > 60 (>60) 07/01/24 14:04 Est GFR (MDRD) Non-Af > 60 (>60) 07/01/24 14:04 Glucose 316 mg/dL (65-99) H 07/01/24 14:04 Calcium 10.1 mg/dL (8.5-10.1) 07/01/24 14:04 Corrected Calcium TNP 07/01/24 14:04 Total Bilirubin 7.10 mg/dL (0.2-1.0) H 07/01/24 14:04 AST 194 Units/L (15-37) H 07/01/24 14:04 ALT 179 Units/L (12-78) H 07/01/24 14:04 Alkaline Phosphatase 229 Units/L (46-116) H 07/01/24 14:04 Troponin I High Sens 7.1 ng/L (4.0-60.0) 07/01/24 14:04 Total Protein 7.7 g/dL (6.4-8.2) 07/01/24 14:04 Albumin 3.6 g/dL (3.4-5.0) 07/01/24 14:04 Globulin 4.1 g/dL (2.5-4.5) 07/01/24 14:04 Albumin/Globulin Ratio 0.9 Ratio (1.1-2.1) L 07/01/24 14:04 Lipase 31 Units/L (16-77) 07/01/24 14:04 Elevated white count, elevated total bili, elevated liver enzymes, elevated glucose. XRAY XRAY Interpreted by: Radiologist X-ray Results: EXAM: ABDCMEN/PELVIS WITH CON HISTORY: pain in epigastric region that is localized, doesn't radiate, he is having belching, denies n/v/d, pain is 7/10, describes as "gnawing" pain that is constant and c/o abdomen feeling bloated.; COMPARISON: None. TECHNIQUE: Axial CT images of the abdomen and pelvis were obtained after the administration of 100 mL Omnipaque 350 IV contrast and reformatted into coronal and sagittal planes for further evaluation. Radiation dose: 239.46 mGy-cm total DLP FINDINGS: Lung bases are clear. Stomach appears normal. Solid visceral organs of the upper abdomen are unremarkable. Small noncalcified gallstones in the gallbladder fundus. No overt imaging findings of acute cholecystitis. Silastic biliary stent in place with mild intra and extrahepatic biliary duct dilatation. Homogeneous enhancement of the kidneys without hydronephrosis or hydroureter. Unremarkable appearance of the urinary bladder. Imaged reproductive structures are unremarkable. Unremarkable appearance of the large and small bowel. No evidence of acute appendicitis. No pneumoperitoneum. No significant fluid collection. No adenopathy. No acute osseous abnormality. IMPRESSION: 1. No acute intra-abdominal abnormality detected. 2. Small noncalcified gallstones in the gallbladder fundus. No overt imaging findings of acute cholecystitis. 3. Silastic biliary stent in place with mild intra and extrahepatic biliary duct dilatation. THIS IS AN ELECTRONICALLY VERIFIED FINAL REPORT 07/01/2024 5:41 PM - Electronically signed by Pb Figueroa MD Opioid Opioid Risk Tool Age (Dada box if 16-45): No History of Preadolescent Sexual Abuse: No Total: 0 Total Score Risk Category: Low Risk Copyright: [place] predicting aberrant behaviors Discharge Plan Diagnosis Discharge Problem: Acute cholecystitis Discharge Plan Patient Disposition: ADMITTED INPATIENT Condition: Stable Prescriptions: No Action amlodipine 5 mg Tablet 5 mg PO DAILY Genvoya [phone] mg Tablet 150 tab PO DAILY Health Concerns: Post Hospitalization: new medications and changes needed to prevent readmission or further decline. Pt educated and given instructions on all concerns. Plan of Treatment: Continue with present treatment and follow up plan. Pt is to keep follow up appointment as instructed and take medications as ordered. Orders to Discharge Patient Discharge Orders: Transfer (Routine); Ordered 07/01/24 Ordered By: Chemo Lozano Follow ups/Referrals Follow ups/Referrals: NFD,None [Primary Care Provider] - 3 days
[2024-07-01] MEDS: LEVSIN/MAALOX/LIDOC VISC PO ONE (15:01)
[2024-07-01] MEDS: PROTONIX INJ 40 MG VIAL IVP ONE (15:02)
[2024-07-01] MEDS: MORPHINE SULFATE INJ 4 MG IVP ONE (15:03)
[2024-07-01] MEDS: ZOFRAN INJ 4 MG VIAL IVP ONE (15:03)
[2024-07-01 16:21] LABS: HEMATOCRIT 40.4 % (42.0-54.0); LYMPHOCYTES # (AUTO) 0.5 X10^3/uL (1.3-2.9); LYMPHOCYTES % (AUTO) 2.7 % (21.0-51.0); MEAN CORPUSCULAR HEMOGLOBIN 28.1 pg (27.0-34.0)
[2024-07-01 16:23] LABS: ALANINE AMINOTRANSFERASE 179 Units/L (12-78); ALBUMIN 3.6 g/dL (3.4-5.0); ALKALINE PHOSPHATASE 229 Units/L (46-116); ASPARTATE AMINO TRANSFERASE 194 Units/L (15-37); BLOOD UREA NITROGEN 9 mg/dL (7-18); CALCIUM 10.1 mg/dL (8.5-10.1); CARBON DIOXIDE 27.1 mmol/L (21-32); CHLORIDE 92 mmol/L (98-107); COR NA(FOR HYPERGLY) 135 mmol/L (136-145); GLUCOSE 316 mg/dL (65-99); LIPASE 31 Units/L (16-77); POTASSIUM 3.9 mmol/L (3.5-5.1); SODIUM 130 mmol/L (136-145); TOTAL PROTEIN 7.7 g/dL (6.4-8.2); eGFR NON BLACK RACES > 60 (>60)
[2024-07-01 16:29] LABS: BASOPHILS % (AUTO) 0.3 % (0.2-1.0); EOSINOPHILS % (AUTO) 0.1 % (0.9-2.9); HEMOGLOBIN 13.5 g/dL (13.5-18.0); MEAN CORPUSCULAR HGB CONC 33.3 g/dL (33.0-35.0); MEAN CORPUSCULAR VOLUME 84.3 fL (80.0-100.0); MEAN PLATELET VOLUME 8.9 fL (7.4-11.0); MONOCYTES # (AUTO) 0.8 x10^3/uL (0.3-0.8); MONOCYTES % (AUTO) 4.2 % (0.0-13.0); NEUTROPHILS # (AUTO) 18.2 x10^3/uL (2.2-4.8); NEUTROPHILS % (AUTO) 92.7 % (42.0-75.0); PLATELET COUNT 268 X10^3/uL (150.0-450.0); RED CELL DISTRIBUTION WIDTH 15.8 % (11.6-16.5); WHITE BLOOD COUNT 19.7 X10^3/uL (3.6-10.0)
[2024-07-01 17:22] LABS: PLATELET MORPHOLOGY COMMENT NORMAL (NORMAL)
--- NOTE | 2024-07-01 17:45 | CT ---
EXAM: ABDCMEN/PELVIS WITH CON HISTORY: pain in epigastric region that is localized, doesn't radiate, he is having belching, denies n/v/d, pa in is 06/02, describes as "gnawing" pain that is constant and c/o abdomen feeling bloated.; COMPARISON: None. TECHNIQUE: Axial CT images of the abdomen and pelvis were obtained after the administration of 100 mL Omnipaque 350 IV contrast and reformatted into coronal and sagittal planes for further evaluation. Radiation dose: 239.46 mGy-cm total DLP FINDINGS: Lung bases are clear. Stomach appears normal. Solid visceral organs of the upper abdomen are unremarkable. Small noncalcified gallstones in the gallbladder fundus. No overt imaging findings of acute cholecys titis. Silastic biliary stent in place with mild intra and extrahepatic biliary duct dilatation. Homogeneous enhancement of the kidneys without hydronephrosis or hydroureter. Unremarkable appearance of the urinary bladder. Imaged reproductive structures are unremarkable. Unremarkable appearance of the large and small bowel. No evidence of acute appendicitis. No pneumoperitoneum. No significant fluid collection. No adenopathy. No acute osseous abnormality. IMPRESSION: 1. No acute intra-abdominal abnormality detected. 2. Small noncalcified gallstones in the gallbladder fundus. No overt imaging findings of acute cholec ystitis. 3. Silastic biliary stent in place with mild intra and extrahepatic biliary duct dilatation. THIS IS AN ELECTRONICALLY VERIFIED FINAL REPORT 07/01/2024 5:41 PM - Electronically signed by Pb Figueroa MD
[2024-07-01] MEDS ORDERED: CONSULT PHARMACY - POTASSIUM & MAGNESIUM XX SCH (18:27)
[2024-07-01] MEDS: NS 250 ML IV 25 ML IV PRN (19:48)
[2024-07-01] MEDS: ZOSYN VIAL 3.375 GRAMS 3.375 G in NS 100 ML IV 100 ML IV SCH (19:49)
[2024-07-01] MEDS: MORPHINE SULFATE INJ 4 MG IVP PRN (19:49)
[2024-07-01 20:23] VITALS: BMI 28.1
[2024-07-01] MEDS: MAG-OX TAB PO SCH (21:37)
[2024-07-01] MEDS: LR 1,000 ML IV 1,000 ML IV ONE (22:52)
[2024-07-01] MEDS: LR 1,000 ML IV 1,000 ML IV SCH (23:50)
[2024-07-02 00:06] LABS: BILIRUBIN,URINE 1+ (NEGATIVE); BLOOD/HEMOGLOBIN,URINE 3+ (NEGATIVE); GLUCOSE, URINE 4+ (NEGATIVE); KETONES,URINE NEGATIVE (NEGATIVE); LEUKOCYTE ESTERASE ,URINE NEGATIVE (NEGATIVE); NITRITES,URINE NEGATIVE (NEGATIVE); PROTEIN,URINE 3+ (NEGATIVE); UROBILINOGEN,URINE 1+ (NORMAL)
[2024-07-02 00:08] LABS: APPEARANCE,URINE HAZY (CLEAR); COLOR,URINE DARK YELLOW (YELLOW)
[2024-07-02 00:17] LABS: BACTERIA,URINE NEGATIVE /HPF (NEGATIVE); RBC,URINE 0-2 /HPF (0-3); SQUAMOUS EPITHELIAL CELL,UR RARE /HPF (NEGATIVE)
[2024-07-02] MEDS: ZOFRAN INJ 4 MG VIAL IVP PRN (00:20)
[2024-07-02] MEDS: ZOSYN VIAL 3.375 GRAMS 3.375 G in NS 100 ML IV 100 ML IV SCH (03:06)
[2024-07-02 06:38] LABS: BASOPHILS % (AUTO) 0.1 % (0.2-1.0); EOSINOPHILS % (AUTO) 0.1 % (0.9-2.9); HEMATOCRIT 35.2 % (42.0-54.0); HEMOGLOBIN 11.6 g/dL (13.5-18.0); LYMPHOCYTES # (AUTO) 0.8 X10^3/uL (1.3-2.9); LYMPHOCYTES % (AUTO) 3.3 % (21.0-51.0); MEAN CORPUSCULAR HEMOGLOBIN 27.9 pg (27.0-34.0); MEAN CORPUSCULAR HGB CONC 32.8 g/dL (33.0-35.0); MEAN PLATELET VOLUME 8.6 fL (7.4-11.0); MONOCYTES # (AUTO) 1.3 x10^3/uL (0.3-0.8); MONOCYTES % (AUTO) 5.7 % (0.0-13.0); NEUTROPHILS # (AUTO) 20.9 x10^3/uL (2.2-4.8); NEUTROPHILS % (AUTO) 90.8 % (42.0-75.0); PLATELET COUNT 194 X10^3/uL (150.0-450.0); RED BLOOD COUNT 4.15 X10^6/uL (4.7-6.0); RED CELL DISTRIBUTION WIDTH 15.5 % (11.6-16.5)
[2024-07-02 06:56] LABS: ALANINE AMINOTRANSFERASE 133 Units/L (12-78); ALBUMIN 2.7 g/dL (3.4-5.0); ALKALINE PHOSPHATASE 189 Units/L (46-116); ASPARTATE AMINO TRANSFERASE 110 Units/L (15-37); BLOOD UREA NITROGEN 13 mg/dL (7-18); CALCIUM 9.2 mg/dL (8.5-10.1); CARBON DIOXIDE 27.9 mmol/L (21-32); CHLORIDE 93 mmol/L (98-107); COR CA(FOR HYPOALB) 10.2 mg/dL (8.5-10.1); COR NA(FOR HYPERGLY) 133 mmol/L (136-145); CREATININE 1.09 mg/dL (0.70-1.30); GLUCOSE 277 mg/dL (65-99); MAGNESIUM 1.6 mg/dL (2.0-2.9); POTASSIUM 3.7 mmol/L (3.5-5.1); SODIUM 129 mmol/L (136-145); TOTAL PROTEIN 6.4 g/dL (6.4-8.2); eGFR NON BLACK RACES > 60 (>60)
[2024-07-02 07:06] LABS: BAND NEUTROPHILS % 4 % (0-10); PLATELET MORPHOLOGY COMMENT NORMAL (NORMAL)
[2024-07-02] MEDS ORDERED: CONSULT PHARMACY - POTASSIUM & MAGNESIUM XX SCH (08:00)
[2024-07-02] MEDS ORDERED: EMTRICITABINE PO SCH (09:00)
[2024-07-02] MEDS ORDERED: ELVITEGRAVIR PO SCH (09:00)
[2024-07-02] MEDS ORDERED: COBICISTAT PO SCH (09:00)
[2024-07-02] MEDS ORDERED: TENOFOVIR ALAFENAMIDE PO SCH (09:00)
[2024-07-02] MEDS ORDERED: [UNRECOGNIZED DRUG - OTHER] PO SCH (09:00)
[2024-07-02] MEDS: NORVASC TAB 5 MG PO SCH (09:28)
[2024-07-02] MEDS: NS 1,000 ML IV 1,000 ML with MAGNESIUM SULFATE 50% INJ VIAL 1 G IV SCH (10:07)
[2024-07-02] MEDS: GLUCOPHAGE XR 24-HR PO SCH (11:22)
[2024-07-02] MEDS: ACTOS PO SCH (11:22)
[2024-07-02] MEDS: ATIVAN INJ 2 MG VIAL IVP ONE (11:36)
--- NOTE | 2024-07-02 13:26 | DR.PROGNOT ---
HOSPITAL PROGRESS NOTE Progress Note for Day of: Progress Note Date: 07/02/24 Chief Complaint Chief Complaint: Patient still complaining of upper abdominal pain with some nausea. White count is elevated to 21,000 with shift to the left, bilirubin is still high 8 with moderate elevated liver enzymes. Still afebrile, Soft abdomen with right upper quadrant tenderness, no rebound tenderness, bowel sounds hypoactive. Past Medical Family Social History Allergies: Allergies Sulfa (Sulfonamide Antibiotics) [SULFA] Allergy (Verified 07/01/24 13:45) Review Of Systems ROS: No change since H&P Vital Signs Vital Signs: Vital Signs Temperature 98.0 F Temperature 97.9 F Pulse Rate [Left Brachial] 110 Pulse Rate [Left Brachial] 96 Respiratory Rate 16 Respiratory Rate 22 Respiratory Rate 20 Respiratory Rate 19 Blood Pressure [Right Arm] 108/61 Blood Pressure [Right Arm] 108/72 O2 Sat by Pulse Oximetry 96 O2 Sat by Pulse Oximetry 96 Physical Exam Oriented: Normal Eyes: Normal Ear: Normal Nose: Normal Throat: Normal Respiratory: Normal Cardiovascular: Normal GI:Auscultation: Decreased GI: Tenderness: RUQ, Epigastric and Moderate Speech Pattern: Clear Laboratory and Diagnostics 07/02/24 05:27 07/02/24 05:27 Labs: Laboratory WBC 23.0 X10^3/uL (3.6-10.0) H 07/02/24 05:27 RBC 4.15 X10^6/uL (4.7-6.0) L 07/02/24 05:27 Hgb 11.6 g/dL (13.5-18.0) L 07/02/24 05:27 Hct 35.2 % (42.0-54.0) L 07/02/24 05:27 MCV 85.0 fL (80.0-100.0) 07/02/24 05:27 MCH 27.9 pg (27.0-34.0) 07/02/24 05:27 MCHC 32.8 g/dL (33.0-35.0) L 07/02/24 05:27 RDW 15.5 % (11.6-16.5) 07/02/24 05:27 Plt Count 194 X10^3/uL (150.0-450.0) 07/02/24 05:27 Plt Count Comment Adequate (ADEQUATE) 07/02/24 05:27 MPV 8.6 fL (7.4-11.0) 07/02/24 05:27 Neut % (Auto) 90.8 % (42.0-75.0) H 07/02/24 05:27 Lymph % (Auto) 3.3 % (21.0-51.0) L 07/02/24 05:27 [place] % (Auto) 5.7 % (0.0-13.0) 07/02/24 05:27 Eos % (Auto) 0.1 % (0.9-2.9) L 07/02/24 05:27 Baso % (Auto) 0.1 % (0.2-1.0) L 07/02/24 05:27 Neut # (Auto) 20.9 x10^3/uL (2.2-4.8) H 07/02/24 05:27 Lymph # (Auto) 0.8 X10^3/uL (1.3-2.9) L 07/02/24 05:27 [place] # (Auto) 1.3 x10^3/uL (0.3-0.8) H 07/02/24 05:27 Eos # (Auto) 0.0 x10^3/uL (0.0-0.2) 07/02/24 05:27 Baso # (Auto) 0.0 X10^3/uL (0.0-0.1) 07/02/24 05:27 Absolute Nucleated RBC 0.0 /100WBC 07/02/24 05:27 Total Counted 100 07/02/24 05:27 Neutrophils % (Manual) 84 % (39-76) H 07/02/24 05:27 Band Neutrophils % 4 % (0-10) 07/02/24 05:27 Lymphocytes % (Manual) 9 % (13-43) L 07/02/24 05:27 Monocytes % (Manual) 3 % (4-9) L 07/02/24 05:27 Plt Morphology Comment Normal (NORMAL) 07/02/24 05:27 RBC Morphology Normal (NORMAL) 07/02/24 05:27 Sodium 129 mmol/L (136-145) L 07/02/24 05:27 Corrected Sodium 133 mmol/L (136-145) L 07/02/24 05:27 Potassium 3.7 mmol/L (3.5-5.1) 07/02/24 05:27 Chloride 93 mmol/L (98-107) L 07/02/24 05:27 Carbon Dioxide 27.9 mmol/L (21-32) 07/02/24 05:27 BUN 13 mg/dL (7-18) 07/02/24 05:27 Creatinine 1.09 mg/dL (0.70-1.30) 07/02/24 05:27 Est GFR (MDRD) Af Amer > 60 (>60) 07/02/24 05:27 Est GFR (MDRD) Non-Af > 60 (>60) 07/02/24 05:27 Glucose 277 mg/dL (65-99) H 07/02/24 05:27 POC Glucose (mg/dL) 175 mg/dL (65-99) H 07/02/24 10:53 Calcium 9.2 mg/dL (8.5-10.1) 07/02/24 05:27 Corrected Calcium 10.2 mg/dL (8.5-10.1) H 07/02/24 05:27 Magnesium 1.6 mg/dL (2.0-2.9) L 07/02/24 05:27 Total Bilirubin 8.20 mg/dL (0.2-1.0) H 07/02/24 05:27 AST 110 Units/L (15-37) H 07/02/24 05:27 ALT 133 Units/L (12-78) H 07/02/24 05:27 Alkaline Phosphatase 189 Units/L (46-116) H 07/02/24 05:27 Troponin I High Sens 7.1 ng/L (4.0-60.0) 07/01/24 14:04 Total Protein 6.4 g/dL (6.4-8.2) 07/02/24 05:27 Albumin 2.7 g/dL (3.4-5.0) L 07/02/24 05:27 Globulin 3.7 g/dL (2.5-4.5) 07/02/24 05:27 Albumin/Globulin Ratio 0.7 Ratio (1.1-2.1) L 07/02/24 05:27 Lipase 31 Units/L (16-77) 07/01/24 14:04 Specimen Type Clean catch urine 07/01/24 23:53 Urine Color Dark yellow (YELLOW) 07/01/24 23:53 Urine Appearance Hazy (CLEAR) 07/01/24 23:53 Urine pH 7.0 (5.0 - 8.0) 07/01/24 23:53 Ur Specific [place] 1.010 (1.000-1.030) 07/01/24 23:53 Urine Protein 3+ (NEGATIVE) 07/01/24 23:53 Urine Glucose (UA) 4+ (NEGATIVE) 07/01/24 23:53 Urine Ketones Negative (NEGATIVE) 07/01/24 23:53 Urine Blood 3+ (NEGATIVE) 07/01/24 23:53 Urine Nitrite Negative (NEGATIVE) 07/01/24 23:53 Urine Bilirubin 1+ (NEGATIVE) 07/01/24 23:53 Urine Urobilinogen 1+ (NORMAL) 07/01/24 23:53 Ur Leukocyte Esterase Negative (NEGATIVE) 07/01/24 23:53 Urine RBC 0-2 /HPF (0-3) 07/01/24 23:53 Urine WBC 0-2 /HPF (0-5) 07/01/24 23:53 Ur Squamous Epith Cells Rare /HPF (NEGATIVE) 07/01/24 23:53 Amorphous Sediment Trace /HPF (NEGATIVE) 07/01/24 23:53 Urine Bacteria Negative /HPF (NEGATIVE) 07/01/24 23:53 Urine Mucus Few /HPF (NEGATIVE) 07/01/24 23:53 Ur Culture Indicated? No/not indicated 07/01/24 23:53 Assessment and Plan 1: Acute cholangitis, patient is on IV antibiotics. For MRCP today to evaluate the common bile duct. Patient has a stent already in the common bile duct after sphincterotomy. Will need laparoscopic cholecystectomy if no stones are found in the common bile duct. 2: Diabetes mellitus. Problem Patient Problems: Patient Problems Acute cholecystitis (Acute) K81.0
--- NOTE | 2024-07-02 18:35 | MRI ---
EXAM: MRI ABDOMEN WITHOUT CONTRAST WITH MRCP HISTORY: common bile duct stones; . COMPARISON: CT abdomen July 01, 2024, MRCP July 18, 2023. TECHNIQUE: Using a phased-array coil, MRI of the abdomen was obtained without contrast. In addition to standard imaging, MRCP sequences were acquired including 3D reconstructions. FINDINGS: MRCP: GALLBLADDER: Multiple gallstones are noted HEPATOBILIARY: Multiple stones are seen in the common bile duct. Stones are stacked throughout the c ommon bile duct. There is mild intrahepatic biliary ductal dilatation present PANCREATIC DUCT: There is traditional ductal anatomy. The pancreatic duct is normal in caliber witho ut ductal irregularity to suggest chronic pancreatitis. MRI: LOWER THORAX: Normal LIVER: The liver shows no focal mass. There are no morphologic changes of cirrhosis. There is no e vidence of steatosis on in and out of phase imaging. SPLEEN: Normal PANCREAS: Normal appearance of the parenchyma. KIDNEYS: Normal ADRENAL GLANDS: Normal GI TRACT: Normal course and caliber, though examination not tailored for evaluation of the bowel. LYMPH NODES: No enlarged nodes VESSELS: Normal PERITONEUM / RETROPERITONEUM: No ascites BONES: Normal IMPRESSION: Multiple gallstones. In addition, there are multiple stacked stones throughout the common bile duct with mild intrahepatic biliary ductal dilatation. Common bile duct measures up to 14 mm in diameter. THIS IS AN ELECTRONICALLY VERIFIED FINAL REPORT 07/02/2024 6:31 PM - Electronically signed by Sonu Araujo MD
[2024-07-02] MEDS: SNACK - Diabetic Appropriate PO SCH (20:14)
[2024-07-02] MEDS: EMTRICITABINE PO SCH (21:14)
[2024-07-02] MEDS: TENOFOVIR ALAFENAMIDE PO SCH (21:14)
[2024-07-02] MEDS: ELVITEGRAVIR PO SCH (21:14)
[2024-07-02] MEDS: COBICISTAT PO SCH (21:14)
[2024-07-02] MEDS: [UNRECOGNIZED DRUG - OTHER] PO SCH (21:14)
[2024-07-02] MEDS: NovoLIN R (or HumuLIN R) SUBCUT PRN (21:15)
[2024-07-03 05:31] LABS: BASOPHILS # (AUTO) 0.1 X10^3/uL (0.0-0.1); BASOPHILS % (AUTO) 0.5 % (0.2-1.0); EOSINOPHILS % (AUTO) 0.2 % (0.9-2.9); HEMATOCRIT 35.8 % (42.0-54.0); HEMOGLOBIN 11.7 g/dL (13.5-18.0); LYMPHOCYTES # (AUTO) 0.8 X10^3/uL (1.3-2.9); LYMPHOCYTES % (AUTO) 6.8 % (21.0-51.0); MEAN CORPUSCULAR HGB CONC 32.8 g/dL (33.0-35.0); MEAN CORPUSCULAR VOLUME 85.3 fL (80.0-100.0); MEAN PLATELET VOLUME 8.3 fL (7.4-11.0); MONOCYTES # (AUTO) 0.6 x10^3/uL (0.3-0.8); MONOCYTES % (AUTO) 4.6 % (0.0-13.0); NEUTROPHILS # (AUTO) 10.5 x10^3/uL (2.2-4.8); NEUTROPHILS % (AUTO) 87.9 % (42.0-75.0); PLATELET COUNT 145 X10^3/uL (150.0-450.0); RED BLOOD COUNT 4.19 X10^6/uL (4.7-6.0); RED CELL DISTRIBUTION WIDTH 15.6 % (11.6-16.5)
[2024-07-03 05:42] LABS: ALANINE AMINOTRANSFERASE 93 Units/L (12-78); ALBUMIN 2.4 g/dL (3.4-5.0); ALKALINE PHOSPHATASE 173 Units/L (46-116); ASPARTATE AMINO TRANSFERASE 66 Units/L (15-37); BLOOD UREA NITROGEN 13 mg/dL (7-18); CALCIUM 8.5 mg/dL (8.5-10.1); CARBON DIOXIDE 24.8 mmol/L (21-32); CHLORIDE 98 mmol/L (98-107); COR CA(FOR HYPOALB) 9.8 mg/dL (8.5-10.1); COR NA(FOR HYPERGLY) 134 mmol/L (136-145); CREATININE 1.07 mg/dL (0.70-1.30); GLUCOSE 198 mg/dL (65-99); MAGNESIUM 2.3 mg/dL (2.0-2.9); POTASSIUM 3.7 mmol/L (3.5-5.1); SODIUM 132 mmol/L (136-145); TOTAL PROTEIN 6.5 g/dL (6.4-8.2); eGFR NON BLACK RACES > 60 (>60)
[2024-07-03] MEDS ORDERED: CONSULT PHARMACY - POTASSIUM & MAGNESIUM XX SCH (07:00)
[2024-07-03] MEDS: K-DUR TAB 20 MEQ PO SCH (08:20)
[2024-07-03] MEDS: NS 1,000 ML IV 1,000 ML IV SCH (10:11)
[2024-07-03 10:32] LABS: AMYLASE 16 Units/L (25-115); LIPASE 20 Units/L (16-77)
--- NOTE | 2024-07-03 11:42 | DR.PROGNOT ---
HOSPITAL PROGRESS NOTE Progress Note for Day of: Progress Note Date: 07/03/24 Chief Complaint Chief Complaint: Patient still complaining of upper abdominal pain with some nausea. White count is elevated to 12.0 with shift to the left, bilirubin is still high 6.4 with moderate elevated liver enzymes.Alk Jeancarlos 173.. [id number] . Still afebrile, Soft abdomen with right upper quadrant tenderness, no rebound tenderness, bowel sounds hypoactive. Discussed with patient the findings of MRCP and treatment plan, all choices were given to the patient including transferring him to [place] where he had his ERCP and sphincterotomy. Patient wants to stay here and have the surgery done at [facility], the procedure was discussed and explained to the patient in details. For now we will treat the acute cholangitis and proceed with surgery next week. Past Medical Family Social History Allergies: Allergies Sulfa (Sulfonamide Antibiotics) [SULFA] Allergy (Verified 07/01/24 13:45) Review Of Systems ROS: No change since H&P Vital Signs Vital Signs: Vital Signs Temperature 97.9 F Temperature 98.7 F Pulse Rate [Left Brachial] 101 Pulse Rate [Left Brachial] 107 Respiratory Rate 18 Respiratory Rate 20 Respiratory Rate 22 Respiratory Rate 20 Blood Pressure [Left Arm] 109/61 Blood Pressure [Right Arm] 128/76 O2 Sat by Pulse Oximetry 93 O2 Sat by Pulse Oximetry 92 Physical Exam Oriented: Normal Eyes: Normal Ear: Normal Nose: Normal Throat: Normal Respiratory: Normal Cardiovascular: Normal GI:Auscultation: Decreased GI: Tenderness: RUQ, Epigastric and Moderate Speech Pattern: Clear and Appropriate Laboratory and Diagnostics 07/03/24 05:05 07/03/24 05:05 Labs: Laboratory WBC 12.0 X10^3/uL (3.6-10.0) H D 07/03/24 05:05 RBC 4.19 X10^6/uL (4.7-6.0) L 07/03/24 05:05 Hgb 11.7 g/dL (13.5-18.0) L 07/03/24 05:05 Hct 35.8 % (42.0-54.0) L 07/03/24 05:05 MCV 85.3 fL (80.0-100.0) 07/03/24 05:05 MCH 28.0 pg (27.0-34.0) 07/03/24 05:05 MCHC 32.8 g/dL (33.0-35.0) L 07/03/24 05:05 RDW 15.6 % (11.6-16.5) 07/03/24 05:05 Plt Count 145 X10^3/uL (150.0-450.0) L 07/03/24 05:05 Plt Count Comment Adequate (ADEQUATE) 07/02/24 05:27 MPV 8.3 fL (7.4-11.0) 07/03/24 05:05 Neut % (Auto) 87.9 % (42.0-75.0) H 07/03/24 05:05 Lymph % (Auto) 6.8 % (21.0-51.0) L 07/03/24 05:05 [place] % (Auto) 4.6 % (0.0-13.0) 07/03/24 05:05 Eos % (Auto) 0.2 % (0.9-2.9) L 07/03/24 05:05 Baso % (Auto) 0.5 % (0.2-1.0) 07/03/24 05:05 Neut # (Auto) 10.5 x10^3/uL (2.2-4.8) H 07/03/24 05:05 Lymph # (Auto) 0.8 X10^3/uL (1.3-2.9) L 07/03/24 05:05 [place] # (Auto) 0.6 x10^3/uL (0.3-0.8) 07/03/24 05:05 Eos # (Auto) 0.0 x10^3/uL (0.0-0.2) 07/03/24 05:05 Baso # (Auto) 0.1 X10^3/uL (0.0-0.1) 07/03/24 05:05 Absolute Nucleated RBC 0.0 /100WBC 07/03/24 05:05 Total Counted 100 07/02/24 05:27 Neutrophils % (Manual) 84 % (39-76) H 07/02/24 05:27 Band Neutrophils % 4 % (0-10) 07/02/24 05:27 Lymphocytes % (Manual) 9 % (13-43) L 07/02/24 05:27 Monocytes % (Manual) 3 % (4-9) L 07/02/24 05:27 Plt Morphology Comment Normal (NORMAL) 07/02/24 05:27 RBC Morphology Normal (NORMAL) 07/02/24 05:27 Sodium 132 mmol/L (136-145) L 07/03/24 05:05 Corrected Sodium 134 mmol/L (136-145) L 07/03/24 05:05 Potassium 3.7 mmol/L (3.5-5.1) 07/03/24 05:05 Chloride 98 mmol/L (98-107) 07/03/24 05:05 Carbon Dioxide 24.8 mmol/L (21-32) 07/03/24 05:05 BUN 13 mg/dL (7-18) 07/03/24 05:05 Creatinine 1.07 mg/dL (0.70-1.30) 07/03/24 05:05 Est GFR (MDRD) Af Amer > 60 (>60) 07/03/24 05:05 Est GFR (MDRD) Non-Af > 60 (>60) 07/03/24 05:05 Glucose 198 mg/dL (65-99) H 07/03/24 05:05 POC Glucose (mg/dL) 188 mg/dL (65-99) H 07/03/24 05:37 Calcium 8.5 mg/dL (8.5-10.1) 07/03/24 05:05 Corrected Calcium 9.8 mg/dL (8.5-10.1) 07/03/24 05:05 Magnesium 2.3 mg/dL (2.0-2.9) 07/03/24 05:05 Total Bilirubin 6.40 mg/dL (0.2-1.0) H 07/03/24 05:05 AST 66 Units/L (15-37) H 07/03/24 05:05 ALT 93 Units/L (12-78) H 07/03/24 05:05 Alkaline Phosphatase 173 Units/L (46-116) H 07/03/24 05:05 Troponin I High Sens 7.1 ng/L (4.0-60.0) 07/01/24 14:04 Total Protein 6.5 g/dL (6.4-8.2) 07/03/24 05:05 Albumin 2.4 g/dL (3.4-5.0) L 07/03/24 05:05 Globulin 4.1 g/dL (2.5-4.5) 07/03/24 05:05 Albumin/Globulin Ratio 0.6 Ratio (1.1-2.1) L 07/03/24 05:05 Amylase 16 Units/L (25-115) L 07/03/24 05:05 Lipase 20 Units/L (16-77) 07/03/24 05:05 Specimen Type Clean catch urine 07/01/24 23:53 Urine Color Dark yellow (YELLOW) 07/01/24 23:53 Urine Appearance Hazy (CLEAR) 07/01/24 23:53 Urine pH 7.0 (5.0 - 8.0) 07/01/24 23:53 Ur Specific [place] 1.010 (1.000-1.030) 07/01/24 23:53 Urine Protein 3+ (NEGATIVE) 07/01/24 23:53 Urine Glucose (UA) 4+ (NEGATIVE) 07/01/24 23:53 Urine Ketones Negative (NEGATIVE) 07/01/24 23:53 Urine Blood 3+ (NEGATIVE) 07/01/24 23:53 Urine Nitrite Negative (NEGATIVE) 07/01/24 23:53 Urine Bilirubin 1+ (NEGATIVE) 07/01/24 23:53 Urine Urobilinogen 1+ (NORMAL) 07/01/24 23:53 Ur Leukocyte Esterase Negative (NEGATIVE) 07/01/24 23:53 Urine RBC 0-2 /HPF (0-3) 07/01/24 23:53 Urine WBC 0-2 /HPF (0-5) 07/01/24 23:53 Ur Squamous Epith Cells Rare /HPF (NEGATIVE) 07/01/24 23:53 Amorphous Sediment Trace /HPF (NEGATIVE) 07/01/24 23:53 Urine Bacteria Negative /HPF (NEGATIVE) 07/01/24 23:53 Urine Mucus Few /HPF (NEGATIVE) 07/01/24 23:53 Ur Culture Indicated? No/not indicated 07/01/24 23:53 Assessment and Plan 1: Acute cholangitis, patient is on IV antibiotics. Common bile duct stones and gallstones, possible cholecystitis To continue IV antibiotics to control the current infection and will proceed with laparotomy, cholecystectomy, common bile duct exploration possible choledochoduodenostomy early next week. This was explained and discussed in details with the patient. 2: Diabetes mellitus. Problem Patient Problems: Patient Problems Acute cholecystitis (Acute) K81.0
[2024-07-03] MEDS: PROTONIX INJ 40 MG VIAL IVP SCH (20:05)
[2024-07-04 06:15] LABS: BASOPHILS % (AUTO) 0.4 % (0.2-1.0); EOSINOPHILS # (AUTO) 0.1 x10^3/uL (0.0-0.2); HEMATOCRIT 30.7 % (42.0-54.0); HEMOGLOBIN 10.1 g/dL (13.5-18.0); LYMPHOCYTES # (AUTO) 1.1 X10^3/uL (1.3-2.9); LYMPHOCYTES % (AUTO) 12.1 % (21.0-51.0); MEAN CORPUSCULAR VOLUME 85.1 fL (80.0-100.0); MEAN PLATELET VOLUME 8.8 fL (7.4-11.0); MONOCYTES % (AUTO) 10.9 % (0.0-13.0); NEUTROPHILS # (AUTO) 6.8 x10^3/uL (2.2-4.8); NEUTROPHILS % (AUTO) 75.6 % (42.0-75.0); PLATELET COUNT 160 X10^3/uL (150.0-450.0); RED BLOOD COUNT 3.61 X10^6/uL (4.7-6.0); RED CELL DISTRIBUTION WIDTH 15.9 % (11.6-16.5)
[2024-07-04 06:33] LABS: ALANINE AMINOTRANSFERASE 63 Units/L (12-78); ALKALINE PHOSPHATASE 161 Units/L (46-116); ASPARTATE AMINO TRANSFERASE 38 Units/L (15-37); BLOOD UREA NITROGEN 6 mg/dL (7-18); CALCIUM 8.3 mg/dL (8.5-10.1); CARBON DIOXIDE 25.3 mmol/L (21-32); CHLORIDE 102 mmol/L (98-107); COR CA(FOR HYPOALB) 9.9 mg/dL (8.5-10.1); COR NA(FOR HYPERGLY) 136 mmol/L (136-145); CREATININE 0.96 mg/dL (0.70-1.30); GLUCOSE 146 mg/dL (65-99); MAGNESIUM 1.8 mg/dL (2.0-2.9); POTASSIUM 3.4 mmol/L (3.5-5.1); SODIUM 135 mmol/L (136-145); TOTAL PROTEIN 6.2 g/dL (6.4-8.2); eGFR NON BLACK RACES > 60 (>60)
[2024-07-04] MEDS ORDERED: CONSULT PHARMACY - POTASSIUM & MAGNESIUM XX SCH (08:00)
[2024-07-04] MEDS: MAG-OX TAB PO SCH (08:42)
[2024-07-04] MEDS: K-DUR TAB 20 MEQ PO SCH (08:42)
[2024-07-04 09:36] LABS: INR 1.19 (0.8-1.3)
--- NOTE | 2024-07-04 09:47 | EKG ---
Test Reason : PRE OP Blood Pressure : */* mmHG Vent. Rate : 92 BPM Atrial Rate : 92 BPM P-R Int : 138 ms QRS Dur : 94 ms QT Int : 358 ms P-R-T Axes : 48 -16 1 degrees QTc Int : 442 ms Normal sinus rhythm Normal ECG No previous ECGs available Confirmed by Hawk Robison MD ([id number]) on 07/05/2024 7:45:34 AM Referred By: Confirmed By: Hawk Robison MD
[2024-07-04] MEDS: NS 1,000 ML IV 1,000 ML IV SCH (10:07)
--- NOTE | 2024-07-04 10:09 | PCM.PROG ---
Progress Note Progress Note for Day of Date of Exam: 07/03/24 Subjective Subjective: The patient reports that he still having pain but the pain is located in his epigastrium and not in the right upper quadrant. He had a MRCP this morning that shows that he has multiple stacked gallstones throughout the common bile duct. Our general surgeon, Dr. Carter is seeing the patient. Dr. Carter did inform me that the patient went sometime last year for ERCP at [facility] but the patient continues to have problems. Dr. Carter was going to speak with him to see if he wanted him to proceed with a open cholecystectomy versus going back to [facility] to let them perform any surgery or interventions at may be needed. In the meantime we are still contr olling his pain and treating his UTI. Past Medical Family Social History Allergies: Allergies Sulfa (Sulfonamide Antibiotics) [SULFA] Allergy (Verified 07/01/24 13:45) Review of Systems ROS: No change since H&P Vital Signs and I&O's Vital Signs: Vital Signs Temperature 98.2 F Temperature 97.7 F Pulse Rate [Left Brachial] 97 Pulse Rate [Left Brachial] 102 Respiratory Rate 18 Respiratory Rate 18 Respiratory Rate 20 Respiratory Rate 18 Blood Pressure [Right Arm] 149/85 Blood Pressure [Right Arm] 141/83 O2 Sat by Pulse Oximetry 94 O2 Sat by Pulse Oximetry 94 Intake and Output: Intake & Output 07/01/24 07/02/24 07/03/24 07/04/24 11:59 11:59 11:59 11:59 Intake Total 2068 4067 / 4067 2030 Balance 2068 4067 / 4067 2030 Physical Exam Oriented: Normal Eyes: Normal Ear: Normal Nose: Normal Throat: Normal Respiratory: Normal Cardiovascular: Normal Auscultation: Bowel Sounds: Decreased Tenderness: RUQ, Epigastric and Moderate Speech Pattern: Clear and Appropriate Laboratory and Diagnostics 07/04/24 05:07 07/04/24 05:07 Labs: Laboratory WBC 12.0 X10^3/uL (3.6-10.0) H D 07/03/24 05:05 RBC 4.19 X10^6/uL (4.7-6.0) L 07/03/24 05:05 Hgb 11.7 g/dL (13.5-18.0) L 07/03/24 05:05 Hct 35.8 % (42.0-54.0) L 07/03/24 05:05 MCV 85.3 fL (80.0-100.0) 07/03/24 05:05 MCH 28.0 pg (27.0-34.0) 07/03/24 05:05 MCHC 32.8 g/dL (33.0-35.0) L 07/03/24 05:05 RDW 15.6 % (11.6-16.5) 07/03/24 05:05 Plt Count 145 X10^3/uL (150.0-450.0) L 07/03/24 05:05 Plt Count Comment Adequate (ADEQUATE) 07/02/24 05:27 MPV 8.3 fL (7.4-11.0) 07/03/24 05:05 Neut % (Auto) 87.9 % (42.0-75.0) H 07/03/24 05:05 Lymph % (Auto) 6.8 % (21.0-51.0) L 07/03/24 05:05 [place] % (Auto) 4.6 % (0.0-13.0) 07/03/24 05:05 Eos % (Auto) 0.2 % (0.9-2.9) L 07/03/24 05:05 Baso % (Auto) 0.5 % (0.2-1.0) 07/03/24 05:05 Neut # (Auto) 10.5 x10^3/uL (2.2-4.8) H 07/03/24 05:05 Lymph # (Auto) 0.8 X10^3/uL (1.3-2.9) L 07/03/24 05:05 [place] # (Auto) 0.6 x10^3/uL (0.3-0.8) 07/03/24 05:05 Eos # (Auto) 0.0 x10^3/uL (0.0-0.2) 07/03/24 05:05 Baso # (Auto) 0.1 X10^3/uL (0.0-0.1) 07/03/24 05:05 Absolute Nucleated RBC 0.0 /100WBC 07/03/24 05:05 Total Counted 100 07/02/24 05:27 Neutrophils % (Manual) 84 % (39-76) H 07/02/24 05:27 Band Neutrophils % 4 % (0-10) 07/02/24 05:27 Lymphocytes % (Manual) 9 % (13-43) L 07/02/24 05:27 Monocytes % (Manual) 3 % (4-9) L 07/02/24 05:27 Plt Morphology Comment Normal (NORMAL) 07/02/24 05:27 RBC Morphology Normal (NORMAL) 07/02/24 05:27 Sodium 132 mmol/L (136-145) L 07/03/24 05:05 Corrected Sodium 134 mmol/L (136-145) L 07/03/24 05:05 Potassium 3.7 mmol/L (3.5-5.1) 07/03/24 05:05 Chloride 98 mmol/L (98-107) 07/03/24 05:05 Carbon Dioxide 24.8 mmol/L (21-32) 07/03/24 05:05 BUN 13 mg/dL (7-18) 07/03/24 05:05 Creatinine 1.07 mg/dL (0.70-1.30) 07/03/24 05:05 Est GFR (MDRD) Af Amer > 60 (>60) 07/03/24 05:05 Est GFR (MDRD) Non-Af > 60 (>60) 07/03/24 05:05 Glucose 198 mg/dL (65-99) H 07/03/24 05:05 POC Glucose (mg/dL) 224 mg/dL (65-99) H 07/03/24 15:47 Calcium 8.5 mg/dL (8.5-10.1) 07/03/24 05:05 Corrected Calcium 9.8 mg/dL (8.5-10.1) 07/03/24 05:05 Magnesium 2.3 mg/dL (2.0-2.9) 07/03/24 05:05 Total Bilirubin 6.40 mg/dL (0.2-1.0) H 07/03/24 05:05 AST 66 Units/L (15-37) H 07/03/24 05:05 ALT 93 Units/L (12-78) H 07/03/24 05:05 Alkaline Phosphatase 173 Units/L (46-116) H 07/03/24 05:05 Troponin I High Sens 7.1 ng/L (4.0-60.0) 07/01/24 14:04 Total Protein 6.5 g/dL (6.4-8.2) 07/03/24 05:05 Albumin 2.4 g/dL (3.4-5.0) L 07/03/24 05:05 Globulin 4.1 g/dL (2.5-4.5) 07/03/24 05:05 Albumin/Globulin Ratio 0.6 Ratio (1.1-2.1) L 07/03/24 05:05 Amylase 16 Units/L (25-115) L 07/03/24 05:05 Lipase 20 Units/L (16-77) 07/03/24 05:05 Specimen Type Clean catch urine 07/01/24 23:53 Urine Color Dark yellow (YELLOW) 07/01/24 23:53 Urine Appearance Hazy (CLEAR) 07/01/24 23:53 Urine pH 7.0 (5.0 - 8.0) 07/01/24 23:53 Ur Specific [place] 1.010 (1.000-1.030) 07/01/24 23:53 Urine Protein 3+ (NEGATIVE) 07/01/24 23:53 Urine Glucose (UA) 4+ (NEGATIVE) 07/01/24 23:53 Urine Ketones Negative (NEGATIVE) 07/01/24 23:53 Urine Blood 3+ (NEGATIVE) 07/01/24 23:53 Urine Nitrite Negative (NEGATIVE) 07/01/24 23:53 Urine Bilirubin 1+ (NEGATIVE) 07/01/24 23:53 Urine Urobilinogen 1+ (NORMAL) 07/01/24 23:53 Ur Leukocyte Esterase Negative (NEGATIVE) 07/01/24 23:53 Urine RBC 0-2 /HPF (0-3) 07/01/24 23:53 Urine WBC 0-2 /HPF (0-5) 07/01/24 23:53 Ur Squamous Epith Cells Rare /HPF (NEGATIVE) 07/01/24 23:53 Amorphous Sediment Trace /HPF (NEGATIVE) 07/01/24 23:53 Urine Bacteria Negative /HPF (NEGATIVE) 07/01/24 23:53 Urine Mucus Few /HPF (NEGATIVE) 07/01/24 23:53 Ur Culture Indicated? No/not indicated 07/01/24 23:53 Plan (1) Choledocholithiasis: Status: Acute Plan: Continue IV Zosyn at this time. The patient has chosen to have his gallbladder removed here at [facility]. Dr. Carter plans to do the procedure next week. Meanwhile, we will continue to provide pain control, IV antibiotics, and IV hydration. (2) Hyperbilirubinemia: Status: Acute Narrative Support Text: The patient is total bilirubin level is trending down today. Plan: Continue to follow daily CMP's to monitor total bilirubin level. (3) GERD (gastroesophageal reflux disease): Status: Acute Plan: Protonix IV for acid reflux and GI protection. (4) HTN (hypertension): Status: Chronic Qualifiers: Hypertension type: primary hypertension Qualified Code(s): I10 - Essential (primary) hypertension Plan: Continue amlodipine 5 mg p.o. daily. (5) Diabetes mellitus type 2, noninsulin dependent: Status: Acute Plan: Continue metformin 1000 mg p.o. twice daily. (6) HIV (human immunodeficiency virus infection): Status: Chronic Qualifiers: HIV symptom status: unspecified Qualified Code(s): B20 - Human immunodeficiency virus [HIV] disease Plan: Continue Genvoya
--- NOTE | 2024-07-04 10:14 | PCM.PROG ---
Progress Note Progress Note for Day of Date of Exam: 07/04/24 Subjective Subjective: The patient reports that he is feeling okay this morning. He had no acute problems yesterday or last night. He spoke with general surgeon Dr. Carter earlier this morning and they have decided to do a cholecystectomy tomorrow. The surgeon told the patient that more than likely they will have to do an open cholecystectomy given the nature of the current problem he has with gallstones in the neck of the common bile duct. Continue current treatment at this time. No changes today. We will repeat routine labs tomorrow. Dr. Carter since the patient is BUN has come down did put an order to decrease his IV fluid to 100 cc/h to 6 and creatinine is low at 0.96. Past Medical Family Social History Allergies: Allergies Sulfa (Sulfonamide Antibiotics) [SULFA] Allergy (Verified 07/01/24 13:45) Review of Systems ROS: No change since H&P Vital Signs and I&O's Vital Signs: Vital Signs Temperature 98.6 F Temperature 98.7 F Pulse Rate [Left Brachial] 100 Pulse Rate [Left Brachial] 112 Respiratory Rate 18 Respiratory Rate 18 Respiratory Rate 20 Respiratory Rate 20 Blood Pressure [Right Arm] 136/81 Blood Pressure [Right Arm] 134/75 O2 Sat by Pulse Oximetry 90 O2 Sat by Pulse Oximetry 88 Intake and Output: Intake & Output 07/01/24 07/02/24 07/03/24 07/04/24 11:59 11:59 11:59 11:59 Intake Total 2068 4067 / 4067 5886 / 5886 Balance 2068 4067 / 4067 5886 / 5886 Physical Exam Oriented: Normal Eyes: Normal Ear: Normal Nose: Normal Throat: Normal Respiratory: Normal Cardiovascular: Normal Auscultation: Bowel Sounds: Decreased Tenderness: RUQ, Epigastric and Moderate Speech Pattern: Clear and Appropriate Laboratory and Diagnostics 07/04/24 05:07 07/04/24 05:07 Labs: Laboratory WBC 9.0 X10^3/uL (3.6-10.0) 07/04/24 05:07 RBC 3.61 X10^6/uL (4.7-6.0) L 07/04/24 05:07 Hgb 10.1 g/dL (13.5-18.0) L 07/04/24 05:07 Hct 30.7 % (42.0-54.0) L 07/04/24 05:07 MCV 85.1 fL (80.0-100.0) 07/04/24 05:07 MCH 28.0 pg (27.0-34.0) 07/04/24 05:07 MCHC 33.0 g/dL (33.0-35.0) 07/04/24 05:07 RDW 15.9 % (11.6-16.5) 07/04/24 05:07 Plt Count 160 X10^3/uL (150.0-450.0) 07/04/24 05:07 Plt Count Comment Adequate (ADEQUATE) 07/02/24 05:27 MPV 8.8 fL (7.4-11.0) 07/04/24 05:07 Neut % (Auto) 75.6 % (42.0-75.0) H 07/04/24 05:07 Lymph % (Auto) 12.1 % (21.0-51.0) L 07/04/24 05:07 [place] % (Auto) 10.9 % (0.0-13.0) 07/04/24 05:07 Eos % (Auto) 1.0 % (0.9-2.9) 07/04/24 05:07 Baso % (Auto) 0.4 % (0.2-1.0) 07/04/24 05:07 Neut # (Auto) 6.8 x10^3/uL (2.2-4.8) H 07/04/24 05:07 Lymph # (Auto) 1.1 X10^3/uL (1.3-2.9) L 07/04/24 05:07 [place] # (Auto) 1.0 x10^3/uL (0.3-0.8) H 07/04/24 05:07 Eos # (Auto) 0.1 x10^3/uL (0.0-0.2) 07/04/24 05:07 Baso # (Auto) 0.0 X10^3/uL (0.0-0.1) 07/04/24 05:07 Absolute Nucleated RBC 0.1 /100WBC 07/04/24 05:07 Total Counted 100 07/02/24 05:27 Neutrophils % (Manual) 84 % (39-76) H 07/02/24 05:27 Band Neutrophils % 4 % (0-10) 07/02/24 05:27 Lymphocytes % (Manual) 9 % (13-43) L 07/02/24 05:27 Monocytes % (Manual) 3 % (4-9) L 07/02/24 05:27 Plt Morphology Comment Normal (NORMAL) 07/02/24 05:27 RBC Morphology Normal (NORMAL) 07/02/24 05:27 PT 14.8 SECONDS (11.8-14.3) 07/04/24 05:07 INR Target Range - 07/04/24 05:07 INR 1.19 (0.8-1.3) 07/04/24 05:07 APTT 35.7 SECONDS (22.9-36.5) 07/04/24 05:07 PTT Comment - 07/04/24 05:07 Sodium 135 mmol/L (136-145) L 07/04/24 05:07 Corrected Sodium 136 mmol/L (136-145) 07/04/24 05:07 Potassium 3.4 mmol/L (3.5-5.1) L 07/04/24 05:07 Chloride 102 mmol/L (98-107) 07/04/24 05:07 Carbon Dioxide 25.3 mmol/L (21-32) 07/04/24 05:07 BUN 6 mg/dL (7-18) L 07/04/24 05:07 Creatinine 0.96 mg/dL (0.70-1.30) 07/04/24 05:07 Est GFR (MDRD) Af Amer > 60 (>60) 07/04/24 05:07 Est GFR (MDRD) Non-Af > 60 (>60) 07/04/24 05:07 Glucose 146 mg/dL (65-99) H 07/04/24 05:07 POC Glucose (mg/dL) 177 mg/dL (65-99) H 07/04/24 05:48 Calcium 8.3 mg/dL (8.5-10.1) L 07/04/24 05:07 Corrected Calcium 9.9 mg/dL (8.5-10.1) 07/04/24 05:07 Magnesium 1.8 mg/dL (2.0-2.9) L 07/04/24 05:07 Total Bilirubin 6.30 mg/dL (0.2-1.0) H 07/04/24 05:07 AST 38 Units/L (15-37) H 07/04/24 05:07 ALT 63 Units/L (12-78) 07/04/24 05:07 Alkaline Phosphatase 161 Units/L (46-116) H 07/04/24 05:07 Troponin I High Sens 7.1 ng/L (4.0-60.0) 07/01/24 14:04 Total Protein 6.2 g/dL (6.4-8.2) L 07/04/24 05:07 Albumin 2.0 g/dL (3.4-5.0) L 07/04/24 05:07 Globulin 4.2 g/dL (2.5-4.5) 07/04/24 05:07 Albumin/Globulin Ratio 0.5 Ratio (1.1-2.1) L 07/04/24 05:07 Amylase 16 Units/L (25-115) L 07/03/24 05:05 Lipase 20 Units/L (16-77) 07/03/24 05:05 Specimen Type Clean catch urine 07/01/24 23:53 Urine Color Dark yellow (YELLOW) 07/01/24 23:53 Urine Appearance Hazy (CLEAR) 07/01/24 23:53 Urine pH 7.0 (5.0 - 8.0) 07/01/24 23:53 Ur Specific [place] 1.010 (1.000-1.030) 07/01/24 23:53 Urine Protein 3+ (NEGATIVE) 07/01/24 23:53 Urine Glucose (UA) 4+ (NEGATIVE) 07/01/24 23:53 Urine Ketones Negative (NEGATIVE) 07/01/24 23:53 Urine Blood 3+ (NEGATIVE) 07/01/24 23:53 Urine Nitrite Negative (NEGATIVE) 07/01/24 23:53 Urine Bilirubin 1+ (NEGATIVE) 07/01/24 23:53 Urine Urobilinogen 1+ (NORMAL) 07/01/24 23:53 Ur Leukocyte Esterase Negative (NEGATIVE) 07/01/24 23:53 Urine RBC 0-2 /HPF (0-3) 07/01/24 23:53 Urine WBC 0-2 /HPF (0-5) 07/01/24 23:53 Ur Squamous Epith Cells Rare /HPF (NEGATIVE) 07/01/24 23:53 Amorphous Sediment Trace /HPF (NEGATIVE) 07/01/24 23:53 Urine Bacteria Negative /HPF (NEGATIVE) 07/01/24 23:53 Urine Mucus Few /HPF (NEGATIVE) 07/01/24 23:53 Ur Culture Indicated? No/not indicated 07/01/24 23:53 Plan (1) Choledocholithiasis: Status: Acute Plan: Continue IV Zosyn at this time. The patient has chosen to have his gallbladder removed here at [facility]. Dr. Carter plans to do the procedure next week. Meanwhile, we will continue to provide pain control, IV antibiotics, and IV hydration. (2) Hyperbilirubinemia: Status: Acute Plan: Continue to follow daily CMP's to monitor total bilirubin level. (3) GERD (gastroesophageal reflux disease): Status: Acute Plan: Protonix IV for acid reflux and GI protection. (4) HTN (hypertension): Status: Chronic Qualifiers: Hypertension type: primary hypertension Qualified Code(s): I10 - Ess ential (primary) hypertension Plan: Continue amlodipine 5 mg p.o. daily. (5) Diabetes mellitus type 2, noninsulin dependent: Status: Acute Plan: Continue metformin 1000 mg p.o. twice daily. (6) HIV (human immunodeficiency virus infection): Status: Chronic Qualifiers: HIV symptom status: unspecified Qualified Code(s): B20 - Human immunodeficiency virus [HIV] disease Plan: Continue Genvoya (7) Hypokalemia: Status: Acute Plan: Potassium replacement protocol. (8) Hypomagnesemia: Status: Acute Plan: Replace magnesium.
--- NOTE | 2024-07-04 11:45 | RAD ---
EXAM:CHEST, 1 VIEWHISTORY:ACUTE CHOLECYSTITIS; PT STATES HE IS SCHEDULED FOR SURGERY TO REMOVE GB TOMORROWCOMPARISON:NoneFINDINGS:The cardiomediastinal silhouette is prominent.No acute airspace disease. No pneumothorax or effusion.No acute osseous abnormality.IMPRESSION:No acute cardiopulmonary disease.THIS IS AN ELECTRONICALLY VERIFIED FINAL REPORT07/04/2024 11:38 AM - Electronically signed by Juan Machado MD
[2024-07-04] MEDS: HIBICLENS WASH EXT ONE (20:27)
[2024-07-04] MEDS: NORCO 5/325 MG TAB PO PRN (20:30)
[2024-07-05] MEDS: NOZIN NASAL SANITIZER TP ONE (05:13)
[2024-07-05 05:58] LABS: BASOPHILS % (AUTO) 0.5 % (0.2-1.0); EOSINOPHILS # (AUTO) 0.2 x10^3/uL (0.0-0.2); HEMOGLOBIN 11.1 g/dL (13.5-18.0); LYMPHOCYTES # (AUTO) 1.4 X10^3/uL (1.3-2.9); LYMPHOCYTES % (AUTO) 18.2 % (21.0-51.0); MEAN CORPUSCULAR HEMOGLOBIN 28.1 pg (27.0-34.0); MEAN CORPUSCULAR HGB CONC 33.6 g/dL (33.0-35.0); MEAN CORPUSCULAR VOLUME 83.7 fL (80.0-100.0); MONOCYTES # (AUTO) 1.2 x10^3/uL (0.3-0.8); MONOCYTES % (AUTO) 15.8 % (0.0-13.0); NEUTROPHILS # (AUTO) 4.8 x10^3/uL (2.2-4.8); NEUTROPHILS % (AUTO) 63.5 % (42.0-75.0); PLATELET COUNT 193 X10^3/uL (150.0-450.0); RED BLOOD COUNT 3.94 X10^6/uL (4.7-6.0); RED CELL DISTRIBUTION WIDTH 15.3 % (11.6-16.5); WHITE BLOOD COUNT 7.6 X10^3/uL (3.6-10.0)
[2024-07-05 06:22] LABS: ALANINE AMINOTRANSFERASE 55 Units/L (12-78); ALBUMIN 2.1 g/dL (3.4-5.0); ALKALINE PHOSPHATASE 183 Units/L (46-116); ASPARTATE AMINO TRANSFERASE 35 Units/L (15-37); BLOOD UREA NITROGEN 5 mg/dL (7-18); CALCIUM 8.6 mg/dL (8.5-10.1); CHLORIDE 100 mmol/L (98-107); COR CA(FOR HYPOALB) 10.1 mg/dL (8.5-10.1); COR NA(FOR HYPERGLY) 135 mmol/L (136-145); CREATININE 0.85 mg/dL (0.70-1.30); GLUCOSE 137 mg/dL (65-99); MAGNESIUM 1.6 mg/dL (2.0-2.9); POTASSIUM 3.2 mmol/L (3.5-5.1); SODIUM 134 mmol/L (136-145); TOTAL PROTEIN 6.8 g/dL (6.4-8.2); eGFR NON BLACK RACES > 60 (>60)
[2024-07-05] MEDS ORDERED: CONSULT PHARMACY - POTASSIUM & MAGNESIUM XX SCH (07:00)
[2024-07-05] MEDS ORDERED: K-DUR TAB 20 MEQ PO SCH (09:00)
[2024-07-05] MEDS ORDERED: MAG-OX TAB PO SCH (09:00)
[2024-07-05] MEDS: MAGNESIUM SULFATE 1 GRAM/100 mL PREMIX 1 G/100 ML BAG IV SCH (09:06)
[2024-07-05] MEDS: NS + KCL 20 MEQ/L 1,000 ML with MAGNESIUM SULFATE 50% INJ VIAL 1 G IV SCH (09:07)
[2024-07-05] MEDS: NS 1,000 ML IV 1,000 ML ONE ×2 (11:25→12:54)
[2024-07-05] MEDS: TORADOL 30 MG VIAL ONE (11:37)
[2024-07-05] MEDS: ZEMURON 100 MG VIAL ONE (11:58)
[2024-07-05] MEDS: FENTANYL VIAL INJ 250 mcg ONE (11:58)
[2024-07-05] MEDS: REGLAN INJ 10 MG VIAL ONE (11:58)
[2024-07-05] MEDS: VERSED ONE (11:58)
[2024-07-05] MEDS: OFIRMEV IV 1000 MG VIAL 1,000 MG/100 ML VIAL IV ONE (11:58)
[2024-07-05] MEDS: PEPCID 20 MG VIAL ONE (11:58)
[2024-07-05] MEDS: BRIDION ONE (11:58)
[2024-07-05] MEDS: ZOFRAN INJ 4 MG VIAL ONE (11:58)
[2024-07-05] MEDS: DIPRIVAN VIAL 20 ML ONE (11:58)
[2024-07-05] MEDS: MARCAINE 0.5% ONE (12:25)
[2024-07-05] MEDS: POLYMYXIN B SULFATE ONE (12:25)
[2024-07-05] MEDS ORDERED: BENADRYL INJ 50 MG VIAL IVP PRN (13:46)
[2024-07-05] MEDS ORDERED: DILAUDID INJ IVP PRN (13:46)
[2024-07-05] MEDS ORDERED: REGLAN INJ 10 MG VIAL IVP PRN (13:46)
[2024-07-05] MEDS ORDERED: ZOFRAN INJ 4 MG VIAL IVP PRN (13:46)
[2024-07-05] MEDS ORDERED: BARHEMSYS INJ IVP PRN (13:46)
[2024-07-05] MEDS: DILAUDID INJ ONE (13:54)
[2024-07-05] MEDS ORDERED: ULTANE GAS IN ONE (15:35)
[2024-07-05] MEDS: D5 1/2 NS 1,000 ML 1,000 ML IV SCH (16:26)
[2024-07-05] MEDS: PROTONIX INJ 40 MG VIAL IVP SCH (20:08)
[2024-07-05] MEDS: DILAUDID INJ IVP PRN (20:56)
[2024-07-06 06:01] LABS: BASOPHILS # (AUTO) 0.1 X10^3/uL (0.0-0.1); BASOPHILS % (AUTO) 0.7 % (0.2-1.0); EOSINOPHILS % (AUTO) 0.5 % (0.9-2.9); HEMATOCRIT 34.9 % (42.0-54.0); HEMOGLOBIN 11.4 g/dL (13.5-18.0); LYMPHOCYTES # (AUTO) 1.3 X10^3/uL (1.3-2.9); LYMPHOCYTES % (AUTO) 12.4 % (21.0-51.0); MEAN CORPUSCULAR HEMOGLOBIN 27.8 pg (27.0-34.0); MEAN CORPUSCULAR HGB CONC 32.8 g/dL (33.0-35.0); MEAN PLATELET VOLUME 8.1 fL (7.4-11.0); MONOCYTES # (AUTO) 1.2 x10^3/uL (0.3-0.8); MONOCYTES % (AUTO) 11.6 % (0.0-13.0); NEUTROPHILS # (AUTO) 7.8 x10^3/uL (2.2-4.8); NEUTROPHILS % (AUTO) 74.8 % (42.0-75.0); PLATELET COUNT 293 X10^3/uL (150.0-450.0); RED CELL DISTRIBUTION WIDTH 16.1 % (11.6-16.5); WHITE BLOOD COUNT 10.4 X10^3/uL (3.6-10.0)
[2024-07-06 06:21] LABS: ALANINE AMINOTRANSFERASE 59 Units/L (12-78); ALKALINE PHOSPHATASE 187 Units/L (46-116); ASPARTATE AMINO TRANSFERASE 60 Units/L (15-37); BLOOD UREA NITROGEN 9 mg/dL (7-18); CALCIUM 8.1 mg/dL (8.5-10.1); CARBON DIOXIDE 27.3 mmol/L (21-32); CHLORIDE 100 mmol/L (98-107); COR CA(FOR HYPOALB) 9.7 mg/dL (8.5-10.1); COR NA(FOR HYPERGLY) 135 mmol/L (136-145); CREATININE 1.01 mg/dL (0.70-1.30); GLUCOSE 140 mg/dL (65-99); MAGNESIUM 1.9 mg/dL (2.0-2.9); POTASSIUM 3.7 mmol/L (3.5-5.1); SODIUM 134 mmol/L (136-145); TOTAL PROTEIN 6.9 g/dL (6.4-8.2); eGFR NON BLACK RACES > 60 (>60)
[2024-07-06] MEDS: D5 1/2 NS + KCL 20 MEQ/L 1,000 ML with MAGNESIUM SULFATE 50% INJ VIAL 1 G IV SCH (09:00)
[2024-07-06] MEDS ORDERED: NS 100 ML IV 100 ML ONE (09:05)
--- NOTE | 2024-07-06 09:06 | DR.PROGNOT ---
HOSPITAL PROGRESS NOTE Progress Note for Day of: Progress Note Date: 07/06/24 Chief Complaint Chief Complaint: Status post laparotomy, cholecystectomy, common bile duct exploration and choledochoduodenostomy day 1. Complaining of incisional pain otherwise stable vital signs with moderate amount of drainage through SHAWNA drain and NG tube. White count is 10.4, hemoglobin 11.4, glucose 124, bilirubin still high 7.3 and alkaline phosphatase is 187. Will get out of bed, DC Andersen catheter, continue incentive spirometer and DVT prophylaxis. May have ice chips and popsicles. Past Medical Family Social History Allergies: Allergies Sulfa (Sulfonamide Antibiotics) [SULFA] Allergy (Verified 07/01/24 13:45) Review Of Systems ROS: No change since H&P Vital Signs Vital Signs: Vital Signs Temperature 97.5 F Pulse Rate [Left Brachial] 100 Respiratory Rate 16 Respiratory Rate 16 Respiratory Rate 16 Respiratory Rate 16 Blood Pressure [Left Arm] 141/78 O2 Sat by Pulse Oximetry 93 Physical Exam Oriented: Normal Eyes: Normal Ear: Normal Nose: Normal Throat: Normal Respiratory: Normal Cardiovascular: Normal GI:Auscultation: Decreased GI: Tenderness: RUQ, Epigastric and Moderate Mood Description: Calm Speech Pattern: Clear and Appropriate Laboratory and Diagnostics 07/06/24 05:35 07/06/24 05:35 Labs: 07/05/24 12:39 Gallbladder Wound Gram Stain - Final Laboratory WBC 10.4 X10^3/uL (3.6-10.0) H 07/06/24 05:35 RBC 4.10 X10^6/uL (4.7-6.0) L 07/06/24 05:35 Hgb 11.4 g/dL (13.5-18.0) L 07/06/24 05:35 Hct 34.9 % (42.0-54.0) L 07/06/24 05:35 MCV 85.0 fL (80.0-100.0) 07/06/24 05:35 MCH 27.8 pg (27.0-34.0) 07/06/24 05:35 MCHC 32.8 g/dL (33.0-35.0) L 07/06/24 05:35 RDW 16.1 % (11.6-16.5) 07/06/24 05:35 Plt Count 293 X10^3/uL (150.0-450.0) 07/06/24 05:35 Plt Count Comment Adequate (ADEQUATE) 07/02/24 05:27 MPV 8.1 fL (7.4-11.0) 07/06/24 05:35 Neut % (Auto) 74.8 % (42.0-75.0) 07/06/24 05:35 Lymph % (Auto) 12.4 % (21.0-51.0) L 07/06/24 05:35 [place] % (Auto) 11.6 % (0.0-13.0) 07/06/24 05:35 Eos % (Auto) 0.5 % (0.9-2.9) L 07/06/24 05:35 Baso % (Auto) 0.7 % (0.2-1.0) 07/06/24 05:35 Neut # (Auto) 7.8 x10^3/uL (2.2-4.8) H 07/06/24 05:35 Lymph # (Auto) 1.3 X10^3/uL (1.3-2.9) 07/06/24 05:35 [place] # (Auto) 1.2 x10^3/uL (0.3-0.8) H 07/06/24 05:35 Eos # (Auto) 0.0 x10^3/uL (0.0-0.2) 07/06/24 05:35 Baso # (Auto) 0.1 X10^3/uL (0.0-0.1) 07/06/24 05:35 Absolute Nucleated RBC 0.0 /100WBC 07/06/24 05:35 Total Counted 100 07/02/24 05:27 Neutrophils % (Manual) 84 % (39-76) H 07/02/24 05:27 Band Neutrophils % 4 % (0-10) 07/02/24 05:27 Lymphocytes % (Manual) 9 % (13-43) L 07/02/24 05:27 Monocytes % (Manual) 3 % (4-9) L 07/02/24 05:27 Plt Morphology Comment Normal (NORMAL) 07/02/24 05:27 RBC Morphology Normal (NORMAL) 07/02/24 05:27 PT 14.8 SECONDS (11.8-14.3) 07/04/24 05:07 INR Target Range - 07/04/24 05:07 INR 1.19 (0.8-1.3) 07/04/24 05:07 APTT 35.7 SECONDS (22.9-36.5) 07/04/24 05:07 PTT Comment - 07/04/24 05:07 Sodium 134 mmol/L (136-145) L 07/06/24 05:35 Corrected Sodium 135 mmol/L (136-145) L 07/06/24 05:35 Potassium 3.7 mmol/L (3.5-5.1) 07/06/24 05:35 Chloride 100 mmol/L (98-107) 07/06/24 05:35 Carbon Dioxide 27.3 mmol/L (21-32) 07/06/24 05:35 BUN 9 mg/dL (7-18) 07/06/24 05:35 Creatinine 1.01 mg/dL (0.70-1.30) 07/06/24 05:35 Est GFR (MDRD) Af Amer > 60 (>60) 07/06/24 05:35 Est GFR (MDRD) Non-Af > 60 (>60) 07/06/24 05:35 Glucose 140 mg/dL (65-99) H 07/06/24 05:35 POC Glucose (mg/dL) 124 mg/dL (65-99) H 07/06/24 05:23 Calcium 8.1 mg/dL (8.5-10.1) L 07/06/24 05:35 Corrected Calcium 9.7 mg/dL (8.5-10.1) 07/06/24 05:35 Magnesium 1.9 mg/dL (2.0-2.9) L 07/06/24 05:35 Magnesium Cancelled 07/06/24 05:35 Total Bilirubin 7.30 mg/dL (0.2-1.0) H 07/06/24 05:35 AST 60 Units/L (15-37) H 07/06/24 05:35 ALT 59 Units/L (12-78) 07/06/24 05:35 Alkaline Phosphatase 187 Units/L (46-116) H 07/06/24 05:35 Troponin I High Sens 7.1 ng/L (4.0-60.0) 07/01/24 14:04 Total Protein 6.9 g/dL (6.4-8.2) 07/06/24 05:35 Albumin 2.0 g/dL (3.4-5.0) L 07/06/24 05:35 Globulin 4.9 g/dL (2.5-4.5) H 07/06/24 05:35 Albumin/Globulin Ratio 0.4 Ratio (1.1-2.1) L 07/06/24 05:35 Amylase 16 Units/L (25-115) L 07/03/24 05:05 Lipase 20 Units/L (16-77) 07/03/24 05:05 Specimen Type Clean catch urine 07/01/24 23:53 Urine Color Dark yellow (YELLOW) 07/01/24 23:53 Urine Appearance Hazy (CLEAR) 07/01/24 23:53 Urine pH 7.0 (5.0 - 8.0) 07/01/24 23:53 Ur Specific [place] 1.010 (1.000-1.030) 07/01/24 23:53 Urine Protein 3+ (NEGATIVE) 07/01/24 23:53 Urine Glucose (UA) 4+ (NEGATIVE) 07/01/24 23:53 Urine Ketones Negative (NEGATIVE) 07/01/24 23:53 Urine Blood 3+ (NEGATIVE) 07/01/24 23:53 Urine Nitrite Negative (NEGATIVE) 07/01/24 23:53 Urine Bilirubin 1+ (NEGATIVE) 07/01/24 23:53 Urine Urobilinogen 1+ (NORMAL) 07/01/24 23:53 Ur Leukocyte Esterase Negative (NEGATIVE) 07/01/24 23:53 Urine RBC 0-2 /HPF (0-3) 07/01/24 23:53 Urine WBC 0-2 /HPF (0-5) 07/01/24 23:53 Ur Squamous Epith Cells Rare /HPF (NEGATIVE) 07/01/24 23:53 Amorphous Sediment Trace /HPF (NEGATIVE) 07/01/24 23:53 Urine Bacteria Negative /HPF (NEGATIVE) 07/01/24 23:53 Urine Mucus Few /HPF (NEGATIVE) 07/01/24 23:53 Ur Culture Indicated? No/not indicated 07/01/24 23:53 Assessment and Plan 1: Postop laparotomy, cholecystectomy,, bile duct exploration and choledochoduodenostomy day 1 For acute calculus cholecystitis, cholangitis and the numerous common bile duct stones. Same postoperative care, out of bed, incentive spirometer and DVT prophylaxis, awaiting cultures from the common bile duct and gallbladder. 2: Diabetes mellitus. Problem Patient Problems: Patient Problems Acute cholecystitis (Acute) K81.0
[2024-07-06] MEDS: LOVENOX INJ 40 MG SYR SC SCH (09:07)
[2024-07-07 06:28] LABS: BASOPHILS # (AUTO) 0.1 X10^3/uL (0.0-0.1); BASOPHILS % (AUTO) 0.8 % (0.2-1.0); EOSINOPHILS # (AUTO) 0.2 x10^3/uL (0.0-0.2); EOSINOPHILS % (AUTO) 1.8 % (0.9-2.9); HEMATOCRIT 31.6 % (42.0-54.0); HEMOGLOBIN 10.3 g/dL (13.5-18.0); LYMPHOCYTES # (AUTO) 1.3 X10^3/uL (1.3-2.9); LYMPHOCYTES % (AUTO) 11.8 % (21.0-51.0); MEAN CORPUSCULAR HEMOGLOBIN 27.7 pg (27.0-34.0); MEAN CORPUSCULAR HGB CONC 32.6 g/dL (33.0-35.0); MEAN CORPUSCULAR VOLUME 84.9 fL (80.0-100.0); MEAN PLATELET VOLUME 8.1 fL (7.4-11.0); MONOCYTES # (AUTO) 1.5 x10^3/uL (0.3-0.8); MONOCYTES % (AUTO) 13.5 % (0.0-13.0); NEUTROPHILS # (AUTO) 7.9 x10^3/uL (2.2-4.8); NEUTROPHILS % (AUTO) 72.1 % (42.0-75.0); PLATELET COUNT 334 X10^3/uL (150.0-450.0); RED BLOOD COUNT 3.72 X10^6/uL (4.7-6.0); RED CELL DISTRIBUTION WIDTH 16.2 % (11.6-16.5); WHITE BLOOD COUNT 10.9 X10^3/uL (3.6-10.0)
[2024-07-07 06:46] LABS: ALANINE AMINOTRANSFERASE 40 Units/L (12-78); ALBUMIN 1.8 g/dL (3.4-5.0); ALKALINE PHOSPHATASE 168 Units/L (46-116); ASPARTATE AMINO TRANSFERASE 33 Units/L (15-37); BLOOD UREA NITROGEN 9 mg/dL (7-18); CALCIUM 8.2 mg/dL (8.5-10.1); CARBON DIOXIDE 27.1 mmol/L (21-32); CHLORIDE 99 mmol/L (98-107); COR NA(FOR HYPERGLY) 134 mmol/L (136-145); CREATININE 0.86 mg/dL (0.70-1.30); GLUCOSE 194 mg/dL (65-99); MAGNESIUM 2.2 mg/dL (2.0-2.9); POTASSIUM 3.6 mmol/L (3.5-5.1); SODIUM 132 mmol/L (136-145); TOTAL PROTEIN 6.7 g/dL (6.4-8.2); eGFR NON BLACK RACES > 60 (>60)
[2024-07-07] MEDS ORDERED: ASTELIN NASAL SPRAY ENOSTRIL ONE (10:33)
--- NOTE | 2024-07-07 10:33 | DR.PROGNOT ---
HOSPITAL PROGRESS NOTE Progress Note for Day of: Progress Note Date: 07/07/24 Chief Complaint Chief Complaint: Status post laparotomy, cholecystectomy, common bile duct exploration and choledochoduodenostomy day 2. Complaining of incisional pain otherwise stable vital signs with moderate amount of drainage through SHAWNA drain and NG tube. White count is 10.4, hemoglobin 11.4, glucose 124, bilirubin still high 4.4 and alkaline phosphatase is 187. Will get out of bed, DC Andersen catheter, NGT , continue incentive spirometer and DVT prophylaxis. May have water , ice chips and popsicles. Past Medical Family Social History Allergies: Allergies Sulfa (Sulfonamide Antibiotics) [SULFA] Allergy (Verified 07/01/24 13:45) Review Of Systems ROS: No change since H&P Vital Signs Vital Signs: Vital Signs Temperature 97.9 F Pulse Rate [Left Brachial] 101 Respiratory Rate 20 Respiratory Rate 18 Respiratory Rate 18 Blood Pressure [Right Arm] 132/72 O2 Sat by Pulse Oximetry 92 Physical Exam Oriented: Normal Eyes: Normal Ear: Normal Nose: Normal Throat: Normal Respiratory: Normal Cardiovascular: Normal GI:Auscultation: Decreased GI: Tenderness: RUQ, Epigastric and Moderate Mood Description: Calm Speech Pattern: Clear and Appropriate Laboratory and Diagnostics 07/07/24 05:30 07/07/24 05:30 Labs: 07/05/24 13:19 Abdomen - Preliminary Klebsiella Pneumoniae 07/05/24 12:39 Gallbladder Wound Gram Stain - Final 07/05/24 12:39 Gallbladder Wound Culture - Preliminary Klebsiella Pneumoniae Laboratory WBC 10.9 X10^3/uL (3.6-10.0) H 07/07/24 05:30 RBC 3.72 X10^6/uL (4.7-6.0) L 07/07/24 05:30 Hgb 10.3 g/dL (13.5-18.0) L 07/07/24 05:30 Hct 31.6 % (42.0-54.0) L 07/07/24 05:30 MCV 84.9 fL (80.0-100.0) 07/07/24 05:30 MCH 27.7 pg (27.0-34.0) 07/07/24 05:30 MCHC 32.6 g/dL (33.0-35.0) L 07/07/24 05:30 RDW 16.2 % (11.6-16.5) 07/07/24 05:30 Plt Count 334 X10^3/uL (150.0-450.0) 07/07/24 05:30 Plt Count Comment Adequate (ADEQUATE) 07/02/24 05:27 MPV 8.1 fL (7.4-11.0) 07/07/24 05:30 Neut % (Auto) 72.1 % (42.0-75.0) 07/07/24 05:30 Lymph % (Auto) 11.8 % (21.0-51.0) L 07/07/24 05:30 [place] % (Auto) 13.5 % (0.0-13.0) H 07/07/24 05:30 Eos % (Auto) 1.8 % (0.9-2.9) 07/07/24 05:30 Baso % (Auto) 0.8 % (0.2-1.0) 07/07/24 05:30 Neut # (Auto) 7.9 x10^3/uL (2.2-4.8) H 07/07/24 05:30 Lymph # (Auto) 1.3 X10^3/uL (1.3-2.9) 07/07/24 05:30 [place] # (Auto) 1.5 x10^3/uL (0.3-0.8) H 07/07/24 05:30 Eos # (Auto) 0.2 x10^3/uL (0.0-0.2) 07/07/24 05:30 Baso # (Auto) 0.1 X10^3/uL (0.0-0.1) 07/07/24 05:30 Absolute Nucleated RBC 0.1 /100WBC 07/07/24 05:30 Total Counted 100 07/02/24 05:27 Neutrophils % (Manual) 84 % (39-76) H 07/02/24 05:27 Band Neutrophils % 4 % (0-10) 07/02/24 05:27 Lymphocytes % (Manual) 9 % (13-43) L 07/02/24 05:27 Monocytes % (Manual) 3 % (4-9) L 07/02/24 05:27 Plt Morphology Comment Normal (NORMAL) 07/02/24 05:27 RBC Morphology Normal (NORMAL) 07/02/24 05:27 PT 14.8 SECONDS (11.8-14.3) 07/04/24 05:07 INR Target Range - 07/04/24 05:07 INR 1.19 (0.8-1.3) 07/04/24 05:07 APTT 35.7 SECONDS (22.9-36.5) 07/04/24 05:07 PTT Comment - 07/04/24 05:07 Sodium 132 mmol/L (136-145) L 07/07/24 05:30 Corrected Sodium 134 mmol/L (136-145) L 07/07/24 05:30 Potassium 3.6 mmol/L (3.5-5.1) 07/07/24 05:30 Chloride 99 mmol/L (98-107) 07/07/24 05:30 Carbon Dioxide 27.1 mmol/L (21-32) 07/07/24 05:30 BUN 9 mg/dL (7-18) 07/07/24 05:30 Creatinine 0.86 mg/dL (0.70-1.30) 07/07/24 05:30 Est GFR (MDRD) Af Amer > 60 (>60) 07/07/24 05:30 Est GFR (MDRD) Non-Af > 60 (>60) 07/07/24 05:30 Glucose 194 mg/dL (65-99) H 07/07/24 05:30 POC Glucose (mg/dL) 179 mg/dL (65-99) H 07/07/24 05:24 Calcium 8.2 mg/dL (8.5-10.1) L 07/07/24 05:30 Corrected Calcium 10.0 mg/dL (8.5-10.1) 07/07/24 05:30 Magnesium 2.2 mg/dL (2.0-2.9) 07/07/24 05:30 Total Bilirubin 4.40 mg/dL (0.2-1.0) H 07/07/24 05:30 AST 33 Units/L (15-37) 07/07/24 05:30 ALT 40 Units/L (12-78) 07/07/24 05:30 Alkaline Phosphatase 168 Units/L (46-116) H 07/07/24 05:30 Troponin I High Sens 7.1 ng/L (4.0-60.0) 07/01/24 14:04 Total Protein 6.7 g/dL (6.4-8.2) 07/07/24 05:30 Albumin 1.8 g/dL (3.4-5.0) L 07/07/24 05:30 Globulin 4.9 g/dL (2.5-4.5) H 07/07/24 05:30 Albumin/Globulin Ratio 0.4 Ratio (1.1-2.1) L 07/07/24 05:30 Amylase 16 Units/L (25-115) L 07/03/24 05:05 Lipase 20 Units/L (16-77) 07/03/24 05:05 Specimen Type Clean catch urine 07/01/24 23:53 Urine Color Dark yellow (YELLOW) 07/01/24 23:53 Urine Appearance Hazy (CLEAR) 07/01/24 23:53 Urine pH 7.0 (5.0 - 8.0) 07/01/24 23:53 Ur Specific [place] 1.010 (1.000-1.030) 07/01/24 23:53 Urine Protein 3+ (NEGATIVE) 07/01/24 23:53 Urine Glucose (UA) 4+ (NEGATIVE) 07/01/24 23:53 Urine Ketones Negative (NEGATIVE) 07/01/24 23:53 Urine Blood 3+ (NEGATIVE) 07/01/24 23:53 Urine Nitrite Negative (NEGATIVE) 07/01/24 23:53 Urine Bilirubin 1+ (NEGATIVE) 07/01/24 23:53 Urine Urobilinogen 1+ (NORMAL) 07/01/24 23:53 Ur Leukocyte Esterase Negative (NEGATIVE) 07/01/24 23:53 Urine RBC 0-2 /HPF (0-3) 07/01/24 23:53 Urine WBC 0-2 /HPF (0-5) 07/01/24 23:53 Ur Squamous Epith Cells Rare /HPF (NEGATIVE) 07/01/24 23:53 Amorphous Sediment Trace /HPF (NEGATIVE) 07/01/24 23:53 Urine Bacteria Negative /HPF (NEGATIVE) 07/01/24 23:53 Urine Mucus Few /HPF (NEGATIVE) 07/01/24 23:53 Ur Culture Indicated? No/not indicated 07/01/24 23:53 Assessment and Plan 1: Postop laparotomy, cholecystectomy,, bile duct exploration and choledocho duodenostomy day 2 For acute calculus cholecystitis, cholangitis and the numerous common bile duct stones. Same postoperative care, out of bed, incentive spirometer and DVT prophylaxis, awaiting cultures from the common bile duct and gallbladder. 2: Diabetes mellitus. Problem Patient Problems: Patient Problems Acute cholecystitis (Acute) K81.0
[2024-07-07] MEDS: ASTELIN NASAL SPRAY ENOSTRIL SCH (11:14)
[2024-07-08 06:43] LABS: BASOPHILS % (AUTO) 0.3 % (0.2-1.0); EOSINOPHILS # (AUTO) 0.3 x10^3/uL (0.0-0.2); EOSINOPHILS % (AUTO) 2.5 % (0.9-2.9); HEMATOCRIT 30.4 % (42.0-54.0); LYMPHOCYTES # (AUTO) 1.7 X10^3/uL (1.3-2.9); LYMPHOCYTES % (AUTO) 16.8 % (21.0-51.0); MEAN CORPUSCULAR HEMOGLOBIN 27.6 pg (27.0-34.0); MEAN CORPUSCULAR HGB CONC 32.8 g/dL (33.0-35.0); MEAN CORPUSCULAR VOLUME 84.3 fL (80.0-100.0); MEAN PLATELET VOLUME 8.2 fL (7.4-11.0); MONOCYTES # (AUTO) 1.1 x10^3/uL (0.3-0.8); MONOCYTES % (AUTO) 11.1 % (0.0-13.0); NEUTROPHILS % (AUTO) 69.3 % (42.0-75.0); PLATELET COUNT 394 X10^3/uL (150.0-450.0); RED BLOOD COUNT 3.61 X10^6/uL (4.7-6.0); RED CELL DISTRIBUTION WIDTH 16.2 % (11.6-16.5); WHITE BLOOD COUNT 10.1 X10^3/uL (3.6-10.0)
[2024-07-08 06:50] LABS: ALANINE AMINOTRANSFERASE 31 Units/L (12-78); ALBUMIN 1.7 g/dL (3.4-5.0); ALKALINE PHOSPHATASE 149 Units/L (46-116); ASPARTATE AMINO TRANSFERASE 26 Units/L (15-37); BLOOD UREA NITROGEN 6 mg/dL (7-18); CARBON DIOXIDE 26.4 mmol/L (21-32); CHLORIDE 100 mmol/L (98-107); COR CA(FOR HYPOALB) 9.8 mg/dL (8.5-10.1); COR NA(FOR HYPERGLY) 135 mmol/L (136-145); CREATININE 0.83 mg/dL (0.70-1.30); GLUCOSE 145 mg/dL (65-99); MAGNESIUM 1.9 mg/dL (2.0-2.9); POTASSIUM 3.1 mmol/L (3.5-5.1); SODIUM 134 mmol/L (136-145); TOTAL PROTEIN 6.5 g/dL (6.4-8.2); eGFR NON BLACK RACES > 60 (>60)
[2024-07-08] MEDS ORDERED: CONSULT PHARMACY - POTASSIUM & MAGNESIUM XX SCH (07:00)
[2024-07-08] MEDS ORDERED: D5 1/2 NS 1,000 ML 1,000 ML IV ONE (08:26)
[2024-07-08] MEDS: MAGNESIUM SULFATE IV SCH ×2 (08:35→08:47)
[2024-07-08] MEDS: [UNRECOGNIZED DRUG - OTHER] IV SCH ×2 (08:35→08:47)
[2024-07-08] MEDS: 1/2 NS IV SCH ×2 (08:35→08:47)
[2024-07-08] MEDS: D5 IV SCH ×2 (08:35→08:47)
[2024-07-08] MEDS: KCL IV SCH ×2 (08:35→08:47)
--- NOTE | 2024-07-08 08:50 | DR.PROGNOT ---
HOSPITAL PROGRESS NOTE Progress Note for Day of: Progress Note Date: 07/08/24 Chief Complaint Chief Complaint: Status post laparotomy, cholecystectomy, common bile duct exploration and choledochoduodenostomy day 3. Complaining of incisional pain otherwise stable vital signs with moderate amount of drainage through SHAWNA drain White count is 10.4, hemoglobin 11.4, glucose 124, bilirubin still high 3.1 and alkaline phosphatase is 149. To advance diet to full liquid, reduce IV fluid, keep SHAWNA drain .. Past Medical Family Social History Allergies: Allergies Sulfa (Sulfonamide Antibiotics) [SULFA] Allergy (Verified 07/01/24 13:45) Review Of Systems ROS: No change since H&P Vital Signs Vital Signs: Vital Signs Temperature 97.9 F Temperature 98.1 F Pulse Rate [Left Brachial] 76 Pulse Rate [Left Brachial] 88 Respiratory Rate 18 Respiratory Rate 17 Respiratory Rate 20 Respiratory Rate 20 Respiratory Rate 17 Respiratory Rate 21 Blood Pressure [Left Arm] 130/70 Blood Pressure [Left Arm] 157/85 O2 Sat by Pulse Oximetry 96 O2 Sat by Pulse Oximetry 95 Physical Exam Oriented: Normal Eyes: Normal Ear: Normal Nose: Normal Throat: Normal Respiratory: Normal Cardiovascular: Normal GI:Auscultation: Decreased GI: Tenderness: RUQ, Epigastric and Moderate Mood Description: Calm Speech Pattern: Clear and Appropriate Laboratory and Diagnostics 07/08/24 06:07 07/08/24 06:07 Labs: 07/05/24 13:19 Abdomen - Preliminary Klebsiella Pneumoniae 07/05/24 12:39 Gallbladder Wound Gram Stain - Final 07/05/24 12:39 Gallbladder Wound Culture - Preliminary Klebsiella Pneumoniae Laboratory WBC 10.1 X10^3/uL (3.6-10.0) H 07/08/24 06:07 RBC 3.61 X10^6/uL (4.7-6.0) L 07/08/24 06:07 Hgb 10.0 g/dL (13.5-18.0) L 07/08/24 06:07 Hct 30.4 % (42.0-54.0) L 07/08/24 06:07 MCV 84.3 fL (80.0-100.0) 07/08/24 06:07 MCH 27.6 pg (27.0-34.0) 07/08/24 06:07 MCHC 32.8 g/dL (33.0-35.0) L 07/08/24 06:07 RDW 16.2 % (11.6-16.5) 07/08/24 06:07 Plt Count 394 X10^3/uL (150.0-450.0) 07/08/24 06:07 Plt Count Comment Adequate (ADEQUATE) 07/02/24 05:27 MPV 8.2 fL (7.4-11.0) 07/08/24 06:07 Neut % (Auto) 69.3 % (42.0-75.0) 07/08/24 06:07 Lymph % (Auto) 16.8 % (21.0-51.0) L 07/08/24 06:07 [place] % (Auto) 11.1 % (0.0-13.0) 07/08/24 06:07 Eos % (Auto) 2.5 % (0.9-2.9) 07/08/24 06:07 Baso % (Auto) 0.3 % (0.2-1.0) 07/08/24 06:07 Neut # (Auto) 7.0 x10^3/uL (2.2-4.8) H 07/08/24 06:07 Lymph # (Auto) 1.7 X10^3/uL (1.3-2.9) 07/08/24 06:07 [place] # (Auto) 1.1 x10^3/uL (0.3-0.8) H 07/08/24 06:07 Eos # (Auto) 0.3 x10^3/uL (0.0-0.2) H 07/08/24 06:07 Baso # (Auto) 0.0 X10^3/uL (0.0-0.1) 07/08/24 06:07 Absolute Nucleated RBC 0.1 /100WBC 07/08/24 06:07 Total Counted 100 07/02/24 05:27 Neutrophils % (Manual) 84 % (39-76) H 07/02/24 05:27 Band Neutrophils % 4 % (0-10) 07/02/24 05:27 Lymphocytes % (Manual) 9 % (13-43) L 07/02/24 05:27 Monocytes % (Manual) 3 % (4-9) L 07/02/24 05:27 Plt Morphology Comment Normal (NORMAL) 07/02/24 05:27 RBC Morphology Normal (NORMAL) 07/02/24 05:27 PT 14.8 SECONDS (11.8-14.3) 07/04/24 05:07 INR Target Range - 07/04/24 05:07 INR 1.19 (0.8-1.3) 07/04/24 05:07 APTT 35.7 SECONDS (22.9-36.5) 07/04/24 05:07 PTT Comment - 07/04/24 05:07 Sodium 134 mmol/L (136-145) L 07/08/24 06:07 Corrected Sodium 135 mmol/L (136-145) L 07/08/24 06:07 Potassium 3.1 mmol/L (3.5-5.1) L 07/08/24 06:07 Chloride 100 mmol/L (98-107) 07/08/24 06:07 Carbon Dioxide 26.4 mmol/L (21-32) 07/08/24 06:07 BUN 6 mg/dL (7-18) L 07/08/24 06:07 Creatinine 0.83 mg/dL (0.70-1.30) 07/08/24 06:07 Est GFR (MDRD) Af Amer > 60 (>60) 07/08/24 06:07 Est GFR (MDRD) Non-Af > 60 (>60) 07/08/24 06:07 Glucose 145 mg/dL (65-99) H 07/08/24 06:07 POC Glucose (mg/dL) 145 mg/dL (65-99) H 07/08/24 05:24 Calcium 8.0 mg/dL (8.5-10.1) L 07/08/24 06:07 Corrected Calcium 9.8 mg/dL (8.5-10.1) 07/08/24 06:07 Magnesium 1.9 mg/dL (2.0-2.9) L 07/08/24 06:07 Total Bilirubin 3.10 mg/dL (0.2-1.0) H 07/08/24 06:07 AST 26 Units/L (15-37) 07/08/24 06:07 ALT 31 Units/L (12-78) 07/08/24 06:07 Alkaline Phosphatase 149 Units/L (46-116) H 07/08/24 06:07 Troponin I High Sens 7.1 ng/L (4.0-60.0) 07/01/24 14:04 Total Protein 6.5 g/dL (6.4-8.2) 07/08/24 06:07 Albumin 1.7 g/dL (3.4-5.0) L 07/08/24 06:07 Globulin 4.8 g/dL (2.5-4.5) H 07/08/24 06:07 Albumin/Globulin Ratio 0.4 Ratio (1.1-2.1) L 07/08/24 06:07 Amylase 16 Units/L (25-115) L 07/03/24 05:05 Lipase 20 Units/L (16-77) 07/03/24 05:05 Specimen Type Clean catch urine 07/01/24 23:53 Urine Color Dark yellow (YELLOW) 07/01/24 23:53 Urine Appearance Hazy (CLEAR) 07/01/24 23:53 Urine pH 7.0 (5.0 - 8.0) 07/01/24 23:53 Ur Specific [place] 1.010 (1.000-1.030) 07/01/24 23:53 Urine Protein 3+ (NEGATIVE) 07/01/24 23:53 Urine Glucose (UA) 4+ (NEGATIVE) 07/01/24 23:53 Urine Ketones Negative (NEGATIVE) 07/01/24 23:53 Urine Blood 3+ (NEGATIVE) 07/01/24 23:53 Urine Nitrite Negative (NEGATIVE) 07/01/24 23:53 Urine Bilirubin 1+ (NEGATIVE) 07/01/24 23:53 Urine Urobilinogen 1+ (NORMAL) 07/01/24 23:53 Ur Leukocyte Esterase Negative (NEGATIVE) 07/01/24 23:53 Urine RBC 0-2 /HPF (0-3) 07/01/24 23:53 Urine WBC 0-2 /HPF (0-5) 07/01/24 23:53 Ur Squamous Epith Cells Rare /HPF (NEGATIVE) 07/01/24 23:53 Amorphous Sediment Trace /HPF (NEGATIVE) 07/01/24 23:53 Urine Bacteria Negative /HPF (NEGATIVE) 07/01/24 23:53 Urine Mucus Few /HPF (NEGATIVE) 07/01/24 23:53 Ur Culture Indicated? No/not indicated 07/01/24 23:53 Assessment and Plan 1: Postop laparotomy, cholecystectomy,, bile duct exploration and choledochoduodenostomy day 3 For acute calculus cholecystitis, cholangitis and numerous common bile duct stones. Same postoperative care, out of bed, incentive spirometer and DVT prophylaxis, 2: Diabetes mellitus. Problem Patient Problems: Patient Problems Acute cholecystitis (Acute) K81.0
[2024-07-08] MEDS: DILAUDID INJ IVP PRN (16:01)
[2024-07-08] MEDS: COLACE CAP 100 MG PO SCH (21:52)
[2024-07-08] MEDS: MILK OF MAGNESIA PO SCH (21:52)
[2024-07-09 04:56] VITALS: TEMP 98.1
[2024-07-09 06:19] LABS: BASOPHILS # (AUTO) 0.1 X10^3/uL (0.0-0.1); BASOPHILS % (AUTO) 1.7 % (0.2-1.0); EOSINOPHILS # (AUTO) 0.2 x10^3/uL (0.0-0.2); EOSINOPHILS % (AUTO) 2.7 % (0.9-2.9); HEMATOCRIT 30.7 % (42.0-54.0); LYMPHOCYTES # (AUTO) 1.3 X10^3/uL (1.3-2.9); LYMPHOCYTES % (AUTO) 16.9 % (21.0-51.0); MEAN CORPUSCULAR HEMOGLOBIN 27.5 pg (27.0-34.0); MEAN CORPUSCULAR HGB CONC 32.6 g/dL (33.0-35.0); MEAN CORPUSCULAR VOLUME 84.3 fL (80.0-100.0); MEAN PLATELET VOLUME 8.2 fL (7.4-11.0); MONOCYTES # (AUTO) 0.5 x10^3/uL (0.3-0.8); MONOCYTES % (AUTO) 6.2 % (0.0-13.0); NEUTROPHILS # (AUTO) 5.5 x10^3/uL (2.2-4.8); NEUTROPHILS % (AUTO) 72.5 % (42.0-75.0); PLATELET COUNT 456 X10^3/uL (150.0-450.0); RED BLOOD COUNT 3.65 X10^6/uL (4.7-6.0); RED CELL DISTRIBUTION WIDTH 16.3 % (11.6-16.5); WHITE BLOOD COUNT 7.6 X10^3/uL (3.6-10.0)
[2024-07-09 06:28] LABS: ALANINE AMINOTRANSFERASE 24 Units/L (12-78); ALBUMIN 1.7 g/dL (3.4-5.0); ALKALINE PHOSPHATASE 151 Units/L (46-116); ASPARTATE AMINO TRANSFERASE 24 Units/L (15-37); BLOOD UREA NITROGEN 3 mg/dL (7-18); CALCIUM 8.2 mg/dL (8.5-10.1); CARBON DIOXIDE 26.8 mmol/L (21-32); CHLORIDE 102 mmol/L (98-107); COR NA(FOR HYPERGLY) 139 mmol/L (136-145); CREATININE 0.89 mg/dL (0.70-1.30); GLUCOSE 180 mg/dL (65-99); MAGNESIUM 2.1 mg/dL (2.0-2.9); POTASSIUM 3.4 mmol/L (3.5-5.1); SODIUM 137 mmol/L (136-145); TOTAL PROTEIN 6.3 g/dL (6.4-8.2); eGFR NON BLACK RACES > 60 (>60)
[2024-07-09] MEDS ORDERED: CONSULT PHARMACY - POTASSIUM & MAGNESIUM XX SCH (07:00)
[2024-07-09] MEDS: K-DUR TAB 20 MEQ PO SCH (08:38)
[2024-07-09] MEDS ORDERED: LR 1,000 ML IV 1,000 ML IV SCH (09:00)
--- NOTE | 2024-07-09 09:43 | DR.PROGNOT ---
HOSPITAL PROGRESS NOTE Progress Note for Day of: Progress Note Date: 07/09/24 Chief Complaint Chief Complaint: Status post laparotomy, cholecystectomy, common bile duct exploration and choledochoduodenostomy day 4. Complaining of incisional pain otherwise stable vital signs with moderate amount of drainage through SHAWNA drain White count is 10.4, hemoglobin 11.4, glucose 124, bilirubin still high 2.1 and alkaline phosphatase is 149. To advance diet to soft diet , discharge home Past Medical Family Social History Allergies: Allergies Sulfa (Sulfonamide Antibiotics) [SULFA] Allergy (Verified 07/01/24 13:45) Review Of Systems ROS: No change since H&P Vital Signs Vital Signs: Vital Signs Temperature 98.1 F Pulse Rate [Left Brachial] 86 Respiratory Rate 18 Respiratory Rate 21 Respiratory Rate 20 Blood Pressure [Right Arm] 137/80 O2 Sat by Pulse Oximetry 96 Physical Exam Oriented: Normal Eyes: Normal Ear: Normal Nose: Normal Throat: Normal Respiratory: Normal Cardiovascular: Normal GI:Auscultation: Decreased GI: Tenderness: RUQ, Epigastric and Moderate Mood Description: Calm Speech Pattern: Clear and Appropriate Laboratory and Diagnostics 07/09/24 05:20 07/09/24 05:20 Labs: 07/05/24 12:39 Gallbladder Wound Gram Stain - Final 07/05/24 12:39 Gallbladder Wound Culture - Preliminary Klebsiella Pneumoniae 07/05/24 13:19 Abdomen - Final Klebsiella Pneumoniae Laboratory WBC 7.6 X10^3/uL (3.6-10.0) 07/09/24 05:20 RBC 3.65 X10^6/uL (4.7-6.0) L 07/09/24 05:20 Hgb 10.0 g/dL (13.5-18.0) L 07/09/24 05:20 Hct 30.7 % (42.0-54.0) L 07/09/24 05:20 MCV 84.3 fL (80.0-100.0) 07/09/24 05:20 MCH 27.5 pg (27.0-34.0) 07/09/24 05:20 MCHC 32.6 g/dL (33.0-35.0) L 07/09/24 05:20 RDW 16.3 % (11.6-16.5) 07/09/24 05:20 Plt Count 456 X10^3/uL (150.0-450.0) H 07/09/24 05:20 Plt Count Comment Adequate (ADEQUATE) 07/02/24 05:27 MPV 8.2 fL (7.4-11.0) 07/09/24 05:20 Neut % (Auto) 72.5 % (42.0-75.0) 07/09/24 05:20 Lymph % (Auto) 16.9 % (21.0-51.0) L 07/09/24 05:20 [place] % (Auto) 6.2 % (0.0-13.0) 07/09/24 05:20 Eos % (Auto) 2.7 % (0.9-2.9) 07/09/24 05:20 Baso % (Auto) 1.7 % (0.2-1.0) H 07/09/24 05:20 Neut # (Auto) 5.5 x10^3/uL (2.2-4.8) H 07/09/24 05:20 Lymph # (Auto) 1.3 X10^3/uL (1.3-2.9) 07/09/24 05:20 [place] # (Auto) 0.5 x10^3/uL (0.3-0.8) 07/09/24 05:20 Eos # (Auto) 0.2 x10^3/uL (0.0-0.2) 07/09/24 05:20 Baso # (Auto) 0.1 X10^3/uL (0.0-0.1) 07/09/24 05:20 Absolute Nucleated RBC 0.0 /100WBC 07/09/24 05:20 Total Counted 100 07/02/24 05:27 Neutrophils % (Manual) 84 % (39-76) H 07/02/24 05:27 Band Neutrophils % 4 % (0-10) 07/02/24 05:27 Lymphocytes % (Manual) 9 % (13-43) L 07/02/24 05:27 Monocytes % (Manual) 3 % (4-9) L 07/02/24 05:27 Plt Morphology Comment Normal (NORMAL) 07/02/24 05:27 RBC Morphology Normal (NORMAL) 07/02/24 05:27 PT 14.8 SECONDS (11.8-14.3) 07/04/24 05:07 INR Target Range - 07/04/24 05:07 INR 1.19 (0.8-1.3) 07/04/24 05:07 APTT 35.7 SECONDS (22.9-36.5) 07/04/24 05:07 PTT Comment - 07/04/24 05:07 Sodium 137 mmol/L (136-145) 07/09/24 05:20 Corrected Sodium 139 mmol/L (136-145) 07/09/24 05:20 Potassium 3.4 mmol/L (3.5-5.1) L 07/09/24 05:20 Chloride 102 mmol/L (98-107) 07/09/24 05:20 Carbon Dioxide 26.8 mmol/L (21-32) 07/09/24 05:20 BUN 3 mg/dL (7-18) L 07/09/24 05:20 Creatinine 0.89 mg/dL (0.70-1.30) 07/09/24 05:20 Est GFR (MDRD) Af Amer > 60 (>60) 07/09/24 05:20 Est GFR (MDRD) Non-Af > 60 (>60) 07/09/24 05:20 Glucose 180 mg/dL (65-99) H 07/09/24 05:20 POC Glucose (mg/dL) 157 mg/dL (65-99) H 07/09/24 06:34 Calcium 8.2 mg/dL (8.5-10.1) L 07/09/24 05:20 Corrected Calcium 10.0 mg/dL (8.5-10.1) 07/09/24 05:20 Magnesium 2.1 mg/dL (2.0-2.9) 07/09/24 05:20 Total Bilirubin 2.10 mg/dL (0.2-1.0) H 07/09/24 05:20 AST 24 Units/L (15-37) 07/09/24 05:20 ALT 24 Units/L (12-78) 07/09/24 05:20 Alkaline Phosphatase 151 Units/L (46-116) H 07/09/24 05:20 Troponin I High Sens 7.1 ng/L (4.0-60.0) 07/01/24 14:04 Total Protein 6.3 g/dL (6.4-8.2) L 07/09/24 05:20 Albumin 1.7 g/dL (3.4-5.0) L 07/09/24 05:20 Globulin 4.6 g/dL (2.5-4.5) H 07/09/24 05:20 Albumin/Globulin Ratio 0.4 Ratio (1.1-2.1) L 07/09/24 05:20 Amylase 16 Units/L (25-115) L 07/03/24 05:05 Lipase 20 Units/L (16-77) 07/03/24 05:05 Specimen Type Clean catch urine 07/01/24 23:53 Urine Color Dark yellow (YELLOW) 07/01/24 23:53 Urine Appearance Hazy (CLEAR) 07/01/24 23:53 Urine pH 7.0 (5.0 - 8.0) 07/01/24 23:53 Ur Specific Ackley 1.010 (1.000-1.030) 07/01/24 23:53 Urine Protein 3+ (NEGATIVE) 07/01/24 23:53 Urine Glucose (UA) 4+ (NEGATIVE) 07/01/24 23:53 Urine Ketones Negative (NEGATIVE) 07/01/24 23:53 Urine Blood 3+ (NEGATIVE) 07/01/24 23:53 Urine Nitrite Negative (NEGATIVE) 07/01/24 23:53 Urine Bilirubin 1+ (NEGATIVE) 07/01/24 23:53 Urine Urobilinogen 1+ (NORMAL) 07/01/24 23:53 Ur Leukocyte Esterase Negative (NEGATIVE) 07/01/24 23:53 Urine RBC 0-2 /HPF (0-3) 07/01/24 23:53 Urine WBC 0-2 /HPF (0-5) 07/01/24 23:53 Ur Squamous Epith Cells Rare /HPF (NEGATIVE) 07/01/24 23:53 Amorphous Sediment Trace /HPF (NEGATIVE) 07/01/24 23:53 Urine Bacteria Negative /HPF (NEGATIVE) 07/01/24 23:53 Urine Mucus Few /HPF (NEGATIVE) 07/01/24 23:53 Ur Culture Indicated? No/not indicated 07/01/24 23:53 Tissue Pathology See comment. 07/05/24 13:20 Assessment and Plan 1: Postop laparotomy, cholecystectomy,, bile duct exploration and choledochoduodenostomy day 4 For acute calculus cholecystitis, cholangitis and numerous common bile duct stones. Same postoperative care, out of bed, incentive spirometer and DVT prophylaxis, home today , F/U in one week. 2: Diabetes mellitus. Problem Patient Problems: Patient Problems Acute cholecystitis (Acute) K81.0
[2024-07-09 09:49] VITALS: RESP 20
[2024-07-09 09:58] VITALS: BP 139/67; PULSE 89; O2SAT 95
== END 2024-07-09 10:45 | disposition home or self-care (01) ==
LOC: MED/SURG 13:43 → ER 13:43 → MED/SURG 18:16
PROVIDERS: ADMIT Obstetrics & Gynecology Obstetrics; ATTEND Obstetrics & Gynecology Obstetrics